=== PATIENT | female | born 1960 | race Caucasian/White ===

== ENCOUNTER 2016-11-29 09:10 | Emergency (ER) | payer BC ==
[2016-11-29 10:14] LABS: Hematocrit 37 % (35-47); Hemoglobin 12.6 g/dl (12.0-16.0); Mean Corpuscular HGB Conc 34 g/dl (31-36); Mean Corpuscular Hemoglobin 32 pg (27-31); Mean Corpuscular Volume 93 fL (80-97); Mean Platelet Volume 10 um3 (7.4-10.4); Red Blood Count 3.99 10^6/ul (4.0-5.4); Red Cell Distribution Width 13 % (10.5-15); White Blood Count 4.6 10^3/ul (3.5-10.8)
[2016-11-29 10:24] LABS: Albumin 3.4 g/dL (3.2-5.2); BUN/Creatinine Ratio 15.1 (8-20); Calcium 8.7 mg/dL (8.6-10.3); EGFR African American 80.5 (>60); EGFR Non-African American 62.6 (>60); Globulin 3.1 g/dL (2-4); Potassium 4.1 mmol/L (3.5-5.0); Total Bilirubin 0.3 mg/dL (0.2-1.0); Total Protein 6.5 g/dL (6.4-8.9)
[2016-11-29 12:36] VITALS: BP 126/92
--- NOTE | 2016-11-29 14:10 | ED ---
Charlie Marshall Matthew, scribed for Dyllan Mora MD on 11/29/16 at 1011 . GI/ HPI - HPI Summary HPI Summary: A 56 y/o female presents to the ED with rectal bleeding since an hour ago. The patient states that she had bright red blood with her BM this morning, which filled the toilet bowel. The blood with described as bright red and there was minimal stool with the BM. The patient does not have abdominal pain. She is not on blood thinners. She has never had this problem in the past. The patient has a Hx of hemorrhoids. PMHx: no diverticulitis or GERD - History of Current Complaint Chief Complaint: EDGIBleed Time Seen by Provider: 11/29/16 09:37 Stated Complaint: BLOOD IN STOOL Hx Obtained From: Patient Onset/Duration: Started Hours Ago, Atraumatic, Still Present Timing: Intermittent - during BM Severity: Moderate Pain Intensity: 0 Associated Signs and Symptoms: Positive: External Hemorrhoids, Bright Red Blood w/Stool, Blood w/Stool. Negative: Abdominal Pain - Allergy/Home Medications Allergies/Adverse Reactions: Allergies Allergy/AdvReac Type Severity Reaction Status Date / Time Levofloxacin [From Levaquin] Allergy Severe Unknown Verified 11/29/16 09:16 Reaction Details Nitrofurantoin Allergy Severe Unknown Verified 11/29/16 09:16 [From Macrobid] Reaction Details Codeine Allergy Vomiting Verified 11/29/16 09:16 Penicillins [PCN] Allergy Unknown Verified 11/29/16 09:16 Reaction Details Sulfa Antibiotics Allergy Hives/Diff. Verified 11/29/16 09:16 Breathing/I tching Sulfate Allergy Hives/Diff. Verified 11/29/16 09:16 Breathing/I tching Sulfites Allergy Hives/Diff. Verified 11/29/16 09:16 Breathing/I tching PMH/Surg Hx/FS Hx/Imm Hx Endocrine/Hematology History: Reports: Hx Anemia - A CHILD ONLY Denies: Hx Diabetes, Hx Thyroid Disease Cardiovascular History: Reports: Hx Hypertension - ON MEDS Denies: Hx Pacemaker/ICD, Other Cardiovascular Problems/Disorders Respiratory History: Denies: Hx Asthma, Hx Chronic Obstructive Pulmonary Disease (COPD), Other Respiratory Problems/Disorders GI History: Denies: Hx Ulcer, Other GI Disorders Musculoskeletal History: Reports: Other Musculoskeletal History - MENANGIOMA Sensory History: Reports: Hx Contacts or Glasses - GLASSES Denies: Hx Hearing Aid Opthamlomology History: Reports: Hx Contacts or Glasses - GLASSES Neurological History: Denies: Other Neuro Impairments/Disorders Psychiatric History: Denies: Hx Panic Disorder - Cancer History Cancer Type, 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 Hx Anesthesia Reactions: No Infectious Disease History: No Infectious Disease History: Denies: Hx Clostridium Difficile, Hx Hepatitis, Hx Human Immunodeficiency Virus (HIV), Hx of Known/Suspected MRSA, Hx Shingles, Hx Tuberculosis, Hx Known/ Suspected VRE, Hx Known/Suspected VRSA, History Other Infectious Disease, Traveled Outside the [place] in Last 30 Days - Family History Known Family History: Positive: Other - pos: breast CA: grandmother; father allergic to novacaine - Social History Alcohol Use: None Hx Substance Use: No Substance Use Type: Reports: None Hx Tobacco Use: No Smoking Status (MU): Never Smoked Tobacco Have You Smoked in the Last Year: No Review of Systems Constitutional: Negative Eyes: Negative ENT: Negative Cardiovascular: Negative Respiratory: Negative Gastrointestinal: Other - Rectal Bleeding w/ BM Genitourinary: Negative Musculoskeletal: Negative Skin: Negative Neurological: Negative Psychological: Normal All Other Systems Reviewed And Are Negative: Yes Physical Exam - Summary Physical Exam Summary: Rectal exam revealed minor hemorrhoids; however, there were no internal hemorrhoids or gross bleeding noted. Triage Information Reviewed: Yes Vital Signs On Initial Exam: Initial Vitals Temp Pulse Resp BP Pulse Ox 98.4 F 77 17 144/92 100 11/29/16 09:13 11/29/16 09:13 11/29/16 09:13 11/29/16 09:13 11/29/16 09:13 Vital Signs Reviewed: Yes Appearance: Positive: Well-Appearing, No Pain Distress Skin: Positive: Warm, Skin Color Reflects Adequate Perfusion, Dry Head/Face: Positive: Normal Head/Face Inspection Eyes: Positive: Normal ENT: Positive: Normal ENT inspection Neck: Positive: Supple, Nontender Respiratory/Lung Sounds: Positive: Clear to Auscultation, Breath Sounds Present Cardiovascular: Positive: RRR Abdomen Description: Positive: Nontender, Soft, Other: Bowel Sounds: Positive: Present Musculoskeletal: Positive: Normal, Strength/ROM Intact Neurological: Positive: Normal, Sensory/Motor Intact, Alert, Oriented to Person Place, Time Psychiatric: Positive: Normal, Affect/Mood Appropriate Diagnostics - Vital Signs Vital Signs Temp Pulse Resp BP Pulse Ox 11/29/16 09:13 98.4 F 77 17 144/92 100 - Laboratory Lab Results: Lab Results 11/29/16 11/29/16 11/29/16 Range/Units 09:40 09:40 09:40 WBC 4.6 (3.5-10.8) 10^3/ul RBC 3.99 L (4.0-5.4) 10^6/ul Hgb 12.6 (12.0-16.0) g/dl Hct 37 (35-47) % MCV 93 (80-97) fL MCH 32 H (27-31) pg MCHC 34 (31-36) g/dl RDW 13 (10.5-15) % Plt Count 155 (150-450) 10^3/ul MPV 10 (7.4-10.4) um3 Neut % (Auto) 47.1 (38-83) % Lymph % (Auto) 41.2 (25-47) % Pinal % (Auto) 6.3 (1-9) % Eos % (Auto) 4.6 (0-6) % Baso % (Auto) 0.8 (0-2) % Absolute Neuts (auto) 2.2 (1.5-7.7) 10^3/ul Absolute Lymphs (auto) 1.9 (1.0-4.8) 10^3/ul Absolute Monos (auto) 0.3 (0-0.8) 10^3/ul Absolute Eos (auto) 0.2 (0-0.6) 10^3/ul Absolute Basos (auto) 0 (0-0.2) 10^3/ul Absolute Nucleated RBC 0 10^3/ul Nucleated RBC % 0 INR (Anticoag Therapy) 0.90 (0.89-1.11) APTT 23.7 L (26.0-36.3) seconds Sodium (133-145) mmol/L Potassium (3.5-5.0) mmol/L Chloride (101-111) mmol/L Carbon Dioxide (22-32) mmol/L Anion Gap (2-11) mmol/L BUN (6-24) mg/dL Creatinine (0.51-0.95) mg/dL Est GFR ( Amer) (>60) Est GFR (Non-Af Amer) (>60) BUN/Creatinine Ratio (8-20) Glucose (70-100) mg/dL Calcium (8.6-10.3) mg/dL Total Bilirubin (0.2-1.0) mg/dL AST (13-39) U/L ALT (7-52) U/L Alkaline Phosphatase (34-104) U/L Total Protein (6.4-8.9) g/dL Albumin (3.2-5.2) g/dL Globulin (2-4) g/dL Albumin/Globulin Ratio (1-3) Blood Type A Positive Antibody Screen Negative 11/29/16 Range/Units 09:40 WBC (3.5-10.8) 10^3/ul RBC (4.0-5.4) 10^6/ul Hgb (12.0-16.0) g/dl Hct (35-47) % MCV (80-97) fL MCH (27-31) pg MCHC (31-36) g/dl RDW (10.5-15) % Plt Count (150-450) 10^3/ul MPV (7.4-10.4) um3 Neut % (Auto) (38-83) % Lymph % (Auto) (25-47) % Pinal % (Auto) (1-9) % Eos % (Auto) (0-6) % Baso % (Auto) (0-2) % Absolute Neuts (auto) (1.5-7.7) 10^3/ul Absolute Lymphs (auto) (1.0-4.8) 10^3/ul Absolute Monos (auto) (0-0.8) 10^3/ul Absolute Eos (auto) (0-0.6) 10^3/ul Absolute Basos (auto) (0-0.2) 10^3/ul Absolute Nucleated RBC 10^3/ul Nucleated RBC % INR (Anticoag Therapy) (0.89-1.11) APTT (26.0-36.3) seconds Sodium 134 (133-145) mmol/L Potassium 4.1 (3.5-5.0) mmol/L Chloride 104 (101-111) mmol/L Carbon Dioxide 27 (22-32) mmol/L Anion Gap 3 (2-11) mmol/L BUN 14 (6-24) mg/dL Creatinine 0.93 (0.51-0.95) mg/dL Est GFR ( Amer) 80.5 (>60) Est GFR (Non-Af Amer) 62.6 (>60) BUN/Creatinine Ratio 15.1 (8-20) Glucose 82 (70-100) mg/dL Calcium 8.7 (8.6-10.3) mg/dL Total Bilirubin 0.30 (0.2-1.0) mg/dL AST 18 (13-39) U/L ALT 16 (7-52) U/L Alkaline Phosphatase 49 (34-104) U/L Total Protein 6.5 (6.4-8.9) g/dL Albumin 3.4 (3.2-5.2) g/dL Globulin 3.1 (2-4) g/dL Albumin/Globulin Ratio 1.1 (1-3) Blood Type Antibody Screen Result Diagrams: 11/29/16 09:40 11/29/16 09:40 Lab Statement: Any lab studies that have been ordered have been reviewed, and results considered in the medical decision making process. GIGU Course/Dx - Course Course Of Treatment: Ms. Rangel presented having passed a large amount of painless red blood with a small amount of stool this AM. She had no other C/O. We watched her here and she didn't pass any more blood and labs were normal. I recommended close F/U. - Diagnoses Provider Diagnoses: Rectal bleeding Discharge - Discharge Plan Condition: Stable Disposition: HOME Patient Education Materials: Rectal Bleeding (ED) Referrals: Napoleon Gregory MD [Primary Care Provider] - 2 Days Edmund Bui MD [Medical Doctor] - Additional Instructions: Please follow-up with your primary care physician as well as Dr. Bui. The documentation as recorded by the Charlie skelton Matthew accurately reflects the service I personally performed and the decisions made by me, Dyllan Mora MD.
== END 2016-11-29 12:45 | disposition home or self-care (01) ==
LOC: ED 09:10
DX: K62.5 Hemorrhage of anus and rectum (principal); I10 Essential (primary) hypertension; Z88.5 Allergy status to narcotic agent; Z88.0 Allergy status to penicillin; Z88.2 Allergy status to sulfonamides; D32.9 Benign neoplasm of meninges, unspecified; K64.9 Unspecified hemorrhoids
CPT/HCPCS: 36415; 80053; 82272; 85025; 85610; 85730; 86850; 86900; 86901; 99283

== ENCOUNTER 2017-01-07 10:25 | Emergency (ER) | payer BC, OTHER ==
[2017-01-07 10:51] VITALS: BP 98/69
--- NOTE | 2017-01-07 12:16 | UC ---
Court Marshall Salem, scribed for [facility] on 01/07/17 at 1158 . HPI Febrile Illness - HPI Summary HPI Summary: HPI: Patient is a 56 y/o female who presents to the with diarrhea since 0430 yesterday. She reports sudden onset of fever, chills, nausea, and diarrhea repeating throughout the day. She also reports loss of appetite, occasional dry cough, and scratchy feeling in her chest. She denies SOB, but reports general malaise. Pt reports no other sx or related PMHx. However, she reports an episode of blood in the stool a while back. note: VSS, afebrile, post ox: 100%, 05/01 discomfort. Hx of HTN. Visit hx noncontributory to present complaint. Pt has multiple abx allergies. Nurses note: Fever, chills, diarrhea-started yesterday. - History of Current Complaint Chief Complaint: UCGeneralIllness Time Seen by Provider: 01/07/17 11:03 Hx Obtained From: Patient Onset/Duration: Started Days Ago Timing: Intermittent Initial Severity: Moderate Current Severity: Moderate Aggravating Factors: Nothing Alleviating Factors: Nothing Associated Signs and Symptoms: Chills, Cough - Occasional. Dry., Diarrhea, Nausea, Other: - General malaise. - Allergy/Home Medications Allergies/Adverse Reactions: Allergies Allergy/AdvReac Type Severity Reaction Status Date / Time Levofloxacin [From Levaquin] Allergy Severe Unknown Verified 01/07/17 10:46 Reaction Details Nitrofurantoin Allergy Severe Unknown Verified 01/07/17 10:46 [From Macrobid] Reaction Details Codeine Allergy Vomiting Verified 01/07/17 10:46 Penicillins [PCN] Allergy Unknown Verified 01/07/17 10:46 Reaction Details Sulfa Antibiotics Allergy Hives/Diff. Verified 01/07/17 10:46 Breathing/I tching Sulfate Allergy Hives/Diff. Verified 01/07/17 10:46 Breathing/I tching Sulfites Allergy Hives/Diff. Verified 01/07/17 10:46 Breathing/I tching PMH/Surg Hx/FS Hx/Imm Hx Endocrine/Hematology History: Reports: Hx Anemia - A CHILD ONLY Denies: Hx Diabetes, Hx Thyroid Disease Cardiovascular History: Reports: Hx Hypertension - ON MEDS Denies: Hx Pacemaker/ICD, Other Cardiovascular Problems/Disorders Respiratory History: Denies: Hx Asthma, Hx Chronic Obstructive Pulmonary Disease (COPD), Other Respiratory Problems/Disorders GI History: Denies: Hx Ulcer, Other GI Disorders Musculoskeletal History: Reports: Other Musculoskeletal History - MENANGIOMA Sensory History: Reports: Hx Contacts or Glasses - GLASSES Opthamlomology History: Reports: Hx Contacts or Glasses - GLASSES Neurological History: Denies: Other Neuro Impairments/Disorders Psychiatric History: Denies: Hx Panic Disorder - Cancer History Cancer Type, 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 Hx Anesthesia Reactions: No Infectious Disease History: No Infectious Disease History: Denies: Hx Clostridium Difficile, Hx Hepatitis, Hx Human Immunodeficiency Virus (HIV), Hx of Known/Suspected MRSA, Hx Shingles, Hx Tuberculosis, Hx Known/ Suspected VRE, Hx Known/Suspected VRSA, History Other Infectious Disease, Traveled Outside the [place] in Last 30 Days - Family History Known Family History: Positive: Other - pos: breast CA: grandmother; father allergic to novacaine - Social History Alcohol Use: None Hx Substance Use: No Substance Use Type: Reports: None Hx Tobacco Use: No Smoking Status (MU): Never Smoked Tobacco Have You Smoked in the Last Year: No Review of Systems Constitutional: Fever, Chills Respiratory: Cough - Occasional. Dry., Other - No SOB. Gastrointestinal: Diarrhea, Other - Nausea. Loss of appetite. All Other Systems Reviewed And Are Negative: Yes Physical Exam Triage Information Reviewed: Yes Appearance: Well-Appearing, No Pain Distress, Well-Nourished Vital Signs: Initial Vital Signs Temp 97.9 F 01/07/17 10:49 Pulse 80 01/07/17 10:49 Resp 16 01/07/17 10:49 BP 98/69 01/07/17 10:49 Pulse Ox 100 01/07/17 10:49 Vital Signs Reviewed: Yes Eyes: Positive: Conjunctiva Clear ENT: Positive: Hearing grossly normal, Pharynx normal, TMs normal. Negative: Muffled/hoarse voice Neck: Positive: Supple, Nontender, No Lymphadenopathy, Other: - No sinus tenderness. No adenopathy. Respiratory: Positive: Chest non-tender, Lungs clear, Normal breath sounds, No respiratory distress Cardiovascular: Positive: RRR, No Murmur Abdomen Description: Positive: Nontender, No Organomegaly, Soft Bowel Sounds: Positive: Other: - HYPERACTIVE. Musculoskeletal: Positive: Strength Intact, Other: - OLGUIN. Neurological: Positive: Alert Psychological: Positive: Age Appropriate Behavior Diagnostics - Laboratory Diagnostic Studies Completed/Ordered: Influenza A (rapid): negative. Influenza B (rapid): negative. Course/Dx - Diagnoses Clinic Provider Diagnoses: Viral syndrome. Discharge - Discharge Plan Condition: Stable Disposition: HOME Patient Education Materials: Gastroenteritis (ED), Viral Syndrome (ED) Referrals: Napoleon Gregory MD [Primary Care Provider] - Additional Instructions: WE DISCUSSED: 1. IT'S MOST LIKELY THAT YOU HAVE A VIRUS THAT IS GIVING YOU DIARRHEA, CHEST DISCOMFORT, COUGH, NAUSEA AND A TEMPERATURE. 2. THIS SHOULD GO AWAY OVER THE NEXT 36 HOURS OR CERTAINLY IMPROVE. 3. RE CHECK FOR ANY NEW SYMPTOMS OR IF FEVER CONTINUES FOR MORE THAN ANOTHER 36 HOURS. 4. YOUR FLU TEST WAS NEGATIVE. 5. BELOW ARE SOME OTHER INSTRUCTIONS THAT MAY MAKE YOU MORE COMFORTABLE. ESPECIALLY WARM FLUIDS AND STEAM WELL SIMPLIFY DIET. 6. ALSO: USEFUL WAYS TO FEEL BETTER WITHOUT MEDICATIONS: STAND UNDER SHOWER STREAM TO LOOSEN SECRETIONS. USE A VAPORIZOR. STAY AWAY FROM ANY SMOKE OR IRRITANTS. USE SALINE NASAL SPRAY TO KEEP FLOW OF MUCOUS FROM NOSTRILS AND SINUSES. CONSIDER USING NETI POT TO HELP WITH ALLERGIES AND CONGESTION IN THE NOSE. USE THIS THREE TIMES A WEEK. YOU CAN GET THIS AT [facility] IN [place] OR VARIOUS DRUGSTORES. DRINK LOTS OF WARM FLUIDS USEFUL HOME REMEDIES: WARM WATER GARGLES, WITH TSP OF SALT PER 8 OUNCES OF WATER, GARGLE FOR A FEW SECONDS AND SPIT OUT; GARGLE AND SPIT OUT; EVERY THREE HOURS. AND/OR: WARM WATER OR TEA, HONEY AND LEMON; 2-3 CUPS A DAY. FOR SORE THROAT: KEEP THROAT MOIST WITH LOZENGES; TEA AND HONEY. USE WARM WATER GARGLES 3-4 TIMES A DAY. FOLLOW UP: RE-CHECK IN 1O DAYS, NEEDED, IF YOU ARE NOT IMPROVING. RETURN HERE OR SEE YOUR PHYSICIAN. RE-CHECK SOONER IF INCREASED PAIN OR TEMPERATURE. The documentation as recorded by the Court skelton Salem accurately reflects the service I personally performed and the decisions made by , Omar Stephenson MD.
== END 2017-01-07 12:27 | disposition home or self-care (01) ==
LOC: UCEAST 10:25
DX: B34.9 Viral infection, unspecified (principal); I10 Essential (primary) hypertension; Z88.1 Allergy status to other antibiotic agents; Z88.5 Allergy status to narcotic agent; Z88.0 Allergy status to penicillin; Z88.2 Allergy status to sulfonamides
CPT/HCPCS: 87502; 99211; G0463

== ENCOUNTER 2017-02-26 12:52 | Emergency (ER) | payer OTHER, BC ==
[2017-02-26 13:33] VITALS: BP 142/93
--- NOTE | 2017-02-26 13:43 | UC ---
Headache HPI - HPI Summary HPI Summary: 56 yo female followed at [facility] s/p injury late last year WHITT and phonophobia Was seen at clinic yesterday [place] [address] triggered worsening WHITT Requests note for work On Monday has an appt in [facility] for Independent medical exam On Monday has appt in [place] - History Of Current Complaint Chief Complaint: UCHeadache Stated Complaint: POST-CONCUSSION HEADACHE Time Seen by Provider: 02/26/17 13:35 Hx Obtained From: Patient Onset/Duration: Gradual Onset, Lasting Hours Onset Of Symptoms: Sudden, Gradual Initially Headache Was: Moderate Currently Pain Is: Current Pain Scale(0-10)= - 6 Pain Intensity: 6 Pain Scale Used: 0-10 Numeric Timing: Constant Character: Dull, Throbbing Location of Headache: Diffuse Aggravating Factor: Nothing Allevating Factors: Nothing Associated Signs And Symptoms: Positive: Negative - Allergies/Home Medications Allergies/Adverse Reactions: Allergies Allergy/AdvReac Type Severity Reaction Status Date / Time Levofloxacin [From Levaquin] Allergy Severe Unknown Verified 01/07/17 10:46 Reaction Details Nitrofurantoin Allergy Severe Unknown Verified 01/07/17 10:46 [From Macrobid] Reaction Details Codeine Allergy Vomiting Verified 01/07/17 10:46 Penicillins [PCN] Allergy Unknown Verified 01/07/17 10:46 Reaction Details Sulfa Antibiotics Allergy Hives/Diff. Verified 01/07/17 10:46 Breathing/I tching Sulfate Allergy Hives/Diff. Verified 01/07/17 10:46 Breathing/I tching Sulfites Allergy Hives/Diff. Verified 01/07/17 10:46 Breathing/I tching Home Medications: Home Medications Cyclobenzaprine TAB* [Flexeril 10 MG TAB*] 02/26/17 [History] PMH/Surg Hx/FS Hx/Imm Hx Previously Healthy: Yes Endocrine History Of: Denies: Diabetes, Thyroid Disease Cardiovascular History Of: Reports: Hypertension - ON MEDS Denies: Cardiac Disorders, Pacemaker/ICD Respiratory History Of: Reports: Bronchitis - IN THE PAST Denies: COPD, Asthma GI/ History Of: Denies: Ulcer Cancer History Of: Denies: Breast Cancer - Surgical History Surgical History: Yes Surgery Procedure, Year, and Place: appy, cholecystetomy, hernia repair, c- sections, lap for adhesions, hysterectomy, tubal ligation,LEFT OOPHERECTOMY AND RIGHT, left ankle recont. - Family History Known Family History: Positive: Hypertension, Other - pos: breast CA: grandmother; father allergic to novacaine - Social History Alcohol Use: None Substance Use Type: None Smoking Status (MU): Never Smoked Tobacco Have You Smoked in the Last Year: No - Immunization History Most Recent Influenza Vaccination: UTD Hx Tetanus, Diphtheria Vaccination: Yes Vaccination Up to Date: Yes Review of Systems Constitutional: Negative Skin: Negative Eyes: Negative ENT: Negative Respiratory: Negative Cardiovascular: Negative Gastrointestinal: Negative Genitourinary: Negative Motor: Negative Neurovascular: Negative Musculoskeletal: Negative Neurological: Headache Psychological: Negative All Other Systems Reviewed And Are Negative: Yes Physical Exam Triage Information Reviewed: Yes Appearance: Well-Appearing, No Pain Distress, Well-Nourished Vital Signs: Initial Vital Signs Temp 97.3 F 02/26/17 13:28 Pulse 70 02/26/17 13:28 Resp 18 02/26/17 13:28 BP 142/93 02/26/17 13:28 Pulse Ox 99 02/26/17 13:28 Eye Exam: Normal Eyes: Positive: Conjunctiva Clear, Other: - eomi/perrl ENT: Positive: Hearing grossly normal. Negative: Nasal congestion, Trismus, Muffled/hoarse voice Neck: Positive: Supple, Nontender, No Lymphadenopathy Respiratory: Positive: Lungs clear, Normal breath sounds, No respiratory distress, No accessory muscle use Cardiovascular: Positive: RRR, No Murmur, Pulses Normal Abdomen Description: Positive: No Organomegaly, Soft, Bruit Bowel Sounds: Positive: Present Musculoskeletal: Positive: Strength Intact, ROM Intact Neurological Exam: Normal Psychological Exam: Normal Skin Exam: Normal Headache Course/Dx - Differential Dx/Diagnosis Provider Diagnoses: post concussive headache Discharge - Discharge Plan Condition: Stable Disposition: HOME Patient Education Materials: Post Concussion Syndrome (ED) Forms: *Work Release Referrals: Napoleon Gregory MD [Primary Care Provider] -
== END 2017-02-26 13:50 | disposition home or self-care (01) ==
LOC: UCEAST 12:52
DX: F07.81 Postconcussional syndrome (principal); I10 Essential (primary) hypertension; Z88.5 Allergy status to narcotic agent; Z88.3 Allergy status to other anti-infective agents; Z88.0 Allergy status to penicillin; Z88.2 Allergy status to sulfonamides; Z87.09 Personal history of other diseases of the respiratory system
CPT/HCPCS: 99211; G0463

== ENCOUNTER 2017-06-15 13:07 | Emergency (ER) | payer BC, OTHER ==
[2017-06-15 13:49] VITALS: BP 137/94
--- NOTE | 2017-06-15 14:36 | UC ---
Respiratory Complaint HPI - HPI Summary HPI Summary: 56 YEAR OLD FEMALE PRESENTS WITH COMPLAINS OF COUGH, CHEST CONGESTION AND WHEEZING. - History of Current Complaint Chief Complaint: UCRespiratory Stated Complaint: CHEST CONGESTION Time Seen by Provider: 06/15/17 14:33 Hx Obtained From: Patient Onset/Duration: Sudden Onset Severity Initially: Moderate Severity Currently: Moderate Pain Scale Used: 0-10 Numeric - 5 - Allergies/Home Medications Allergies/Adverse Reactions: Allergies Allergy/AdvReac Type Severity Reaction Status Date / Time Levofloxacin [From Levaquin] Allergy Severe Unknown Verified 06/15/17 13:45 Reaction Details Nitrofurantoin Allergy Severe Unknown Verified 06/15/17 13:45 [From Macrobid] Reaction Details Codeine Allergy Vomiting Verified 06/15/17 13:45 Penicillins [PCN] Allergy Unknown Verified 06/15/17 13:45 Reaction Details Sulfa Antibiotics Allergy Hives/Diff. Verified 06/15/17 13:45 Breathing/I tching Sulfate Allergy Hives/Diff. Verified 06/15/17 13:45 Breathing/I tching Sulfites Allergy Hives/Diff. Verified 06/15/17 13:45 Breathing/I tching Home Medications: Home Medications diPHENhydraMINE PO* [Benadryl PO 25 MG TAB*] 06/15/17 [History] PMH/Surg Hx/FS Hx/Imm Hx Previously Healthy: Yes - Surgical History Surgical History: Yes Surgery Procedure, Year, and Place: appy, cholecystetomy, hernia repair, c- sections, lap for adhesions, hysterectomy, tubal ligation,LEFT OOPHERECTOMY AND RIGHT, left ankle recont. - Family History Known Family History: Positive: Unknown, Hypertension, Other - pos: breast CA: grandmother; father allergic to novacaine - Social History Alcohol Use: None Substance Use Type: None Smoking Status (MU): Never Smoked Tobacco Have You Smoked in the Last Year: No - Immunization History Most Recent Influenza Vaccination: UTD Hx Tetanus, Diphtheria Vaccination: Yes Vaccination Up to Date: Yes Review of Systems Constitutional: Negative Skin: Negative Eyes: Negative ENT: Sore Throat Respiratory: Shortness Of Breath, Cough Cardiovascular: Negative Gastrointestinal: Negative Genitourinary: Negative Motor: Negative Neurovascular: Negative Musculoskeletal: Negative Neurological: Negative Psychological: Negative All Other Systems Reviewed And Are Negative: Yes Physical Exam Triage Information Reviewed: Yes Vital Signs: Initial Vital Signs Temp 37.0 C 06/15/17 13:46 Pulse 83 06/15/17 13:46 Resp 16 06/15/17 13:46 BP 137/94 06/15/17 13:46 Pulse Ox 99 06/15/17 13:46 Vital Signs Reviewed: Yes Eye Exam: Normal ENT: Positive: Pharyngeal erythema, Nasal drainage Dental Exam: Normal Neck exam: Normal Neck: Positive: 1 Respiratory: Positive: Wheezing Cardiovascular Exam: Normal Abdominal Exam: Normal Musculoskeletal Exam: Normal Neurological Exam: Normal Psychological Exam: Normal Skin Exam: Normal UC Diagnostic Evaluation - Laboratory O2 Sat by Pulse Oximetry: 99 Respiratory Course/Dx - Differential Dx/Diagnosis Provider Diagnoses: BRONCHITIS Discharge - Discharge Plan Condition: Stable Disposition: HOME Prescriptions: Albuterol/Ipratropium RESP(NF) [Combivent Respimat(NF)] 1 aer IN Q6H PRN #1 aer PRN Reason: Wheezing Azithromyxin CLARISSA (NF) [Z-Clarissa (Zithromax) 250 mg tabs #6] 2 tab PO .TODAY, THEN 1 DAILY #6 tab Promethazine-Dm [Promethazine/Dextromethor 6.25-15 mg/5Ml] 1 teasp PO Q6H PRN # 120 syp MDD 20 ml PRN Reason: Cough Patient Education Materials: Acute Bronchitis (ED) Referrals: Napoleon Gregory MD [Primary Care Provider] -
== END 2017-06-15 15:21 | disposition home or self-care (01) ==
LOC: UCEAST 13:07
DX: J20.9 Acute bronchitis, unspecified (principal); Z88.6 Allergy status to analgesic agent; Z88.1 Allergy status to other antibiotic agents; Z88.5 Allergy status to narcotic agent; Z88.0 Allergy status to penicillin; Z88.2 Allergy status to sulfonamides
CPT/HCPCS: 99212; G0463

== ENCOUNTER 2017-08-18 09:31 | Emergency (ER) | payer OTHER ==
[2017-08-18 09:42] VITALS: BP 123/74
--- NOTE | 2017-08-18 10:41 | UC ---
Ear Complaint HPI - HPI Summary HPI Summary: 2 DAYS OF RIGHT EAR PAIN AND MUFFLED HEARING. HAD SOME DRAINAGE YESTERDAY AND SUBJECTIVE FEVER. DENIES URI SX. PAIN IS RADIATING INTO HER JAW. PT REPORTS SHE HAD SIMILAR SX IN 1998 AND IT DEVELOPED INTO A CELLULITIS OF THE EAR AND NECK. - History of Current Complaint Chief Complaint: UCEar Stated Complaint: EAR ACHE Time Seen by Provider: 08/18/17 10:28 Hx Obtained From: Patient Onset/Duration: Gradual Onset, Lasting Days, Still Present Severity Initially: Moderate Severity Currently: Moderate Pain Intensity: 6 Pain Scale Used: 0-10 Numeric Aggravating Factors: Nothing Alleviating Factors: Nothing Associated Signs/Symptoms: Positive: Discharge, Hearing Loss. Negative: Foreign Body Sensation, Trauma to Ear, Swelling @, URI Symptoms - Allergies/Home Medications Allergies/Adverse Reactions: Allergies Allergy/AdvReac Type Severity Reaction Status Date / Time Levofloxacin [From Levaquin] Allergy Severe Unknown Verified 08/18/17 09:36 Reaction Details Nitrofurantoin Allergy Severe Unknown Verified 08/18/17 09:36 [From Macrobid] Reaction Details Codeine Allergy Vomiting Verified 08/18/17 09:36 Penicillins [PCN] Allergy Unknown Verified 08/18/17 09:36 Reaction Details Sulfa Antibiotics Allergy Hives/Diff. Verified 08/18/17 09:36 Breathing/I tching Sulfate Allergy Hives/Diff. Verified 08/18/17 09:36 Breathing/I tching Sulfites Allergy Hives/Diff. Verified 08/18/17 09:36 Breathing/I tching PMH/Surg Hx/FS Hx/Imm Hx Cardiovascular History: Hypertension - Surgical History Surgical History: Yes Surgery Procedure, Year, and Place: appy, cholecystetomy, hernia repair, c- sections, lap for adhesions, hysterectomy, tubal ligation,left oopherectomy and right, left ankle recont. - Family History Known Family History: Positive: Hypertension, Other - pos: breast CA: grandmother; father allergic to novacaine - Social History Alcohol Use: None Substance Use Type: None Smoking Status (MU): Never Smoked Tobacco Have You Smoked in the Last Year: No - Immunization History Most Recent Influenza Vaccination: 2014 Hx Tetanus, Diphtheria Vaccination: Yes Vaccination Up to Date: Yes Review of Systems Constitutional: Fever ENT: Ear Ache Respiratory: Negative Cardiovascular: Negative Gastrointestinal: Negative All Other Systems Reviewed And Are Negative: Yes Physical Exam Triage Information Reviewed: Yes Appearance: Well-Appearing, No Pain Distress, Well-Nourished Vital Signs: Initial Vital Signs Temp 98.2 F 08/18/17 09:37 Pulse 86 08/18/17 09:37 Resp 16 08/18/17 09:37 BP 123/74 08/18/17 09:37 Pulse Ox 99 08/18/17 09:37 Vital Signs Reviewed: Yes Eyes: Positive: Conjunctiva Clear ENT: Positive: Hearing grossly normal, Pharynx normal, TMs normal, Other: - RIGHT EAC EDEMATOUS. PAIN WITH TRACTION ON PINNA AND PRESSURE ON TRAGUS. Neck: Positive: Supple, No Lymphadenopathy Respiratory: Positive: No respiratory distress, No accessory muscle use Cardiovascular: Positive: Pulses Normal Abdomen Description: Positive: Soft Musculoskeletal: Positive: No Edema Neurological: Positive: Alert Psychological: Positive: Age Appropriate Behavior Skin: Negative: rashes Ear Complaint Course/Dx - Course Course Of Treatment: PT REPORTS ALLERGIES TO LEVOFLOXACIN AND PENICILLINS BUT STATES SHE HAS TAKEN BOTH CIPRODEX OTIC DROPS AND CEPHALEXIN IN THE PAST WITHOUT PROBLEMS AND IS COMFORTABLE WITH THESE RX TODAY. NO SIGN OF CELLULITIS AT PRESENT BUT GIVEN PT CONCERN AND HER HISTORY WILL COVER WITH SYSTEMIC ABX WELL AND OTIC DROPS. - Differential Dx/Diagnosis Provider Diagnoses: RIGHT OTITIS EXTERNA Discharge - Discharge Plan Condition: Stable Disposition: HOME Prescriptions: Cephalexin CAP* [Keflex 500 CAP*] 1,000 mg PO BID #28 cap Ciproflox/Dexameth OTIC.SUSP* [Ciprodex Otic*] 4 drop RIGHT EAR BID #1 bottle Patient Education Materials: Otitis Externa (ED) Referrals: Napoleon Gregory MD [Primary Care Provider] - If Needed Additional Instructions: IF YOUR SYMPTOMS ARE NOT IMPROVING OR DO NOT RESOLVE ENTIRELY FOLLOW-UP WITH ENT BELOW. GO TO THE ER WITHOUT FAIL IF YOUR SYMPTOMS WORSEN - BLOODY DRAINAGE, WORSENING PAIN, FEVER [facility] [phone]
== END 2017-08-18 10:47 | disposition home or self-care (01) ==
LOC: UCEAST 09:31
DX: H60.91 Unspecified otitis externa, right ear (principal); I10 Essential (primary) hypertension; Z88.1 Allergy status to other antibiotic agents; Z88.5 Allergy status to narcotic agent; Z88.0 Allergy status to penicillin; Z88.2 Allergy status to sulfonamides
CPT/HCPCS: 99212; G0463

== ENCOUNTER 2017-08-19 19:49 | Emergency (ER) | payer OTHER ==
[2017-08-19 19:57] VITALS: BP 129/99
[2017-08-19] MEDS ORDERED: ceFUROXime 500 mg TAB(NF) 500 MG TAB PO ONE (20:45)
[2017-08-19] MEDS ORDERED: traMADol TAB* 50 MG PO ONE (20:46)
[2017-08-19] MEDS ORDERED: ceFUROXime TAB(*) 250 MG PO ONE (21:00)
--- NOTE | 2017-08-19 21:02 | ED ---
Doreen Marshall Emily, scribed for Víctor Sethi on 08/19/17 at 2029 . Throat Pain/Nasal Congestion - HPI Summary HPI Summary: This patient is a 57 year old F presenting to [facility] with a chief complaint of R ear pain that began 4 days ago. The CC is described as throbbing. The patient rates the pain 6/10 in severity. Symptoms aggravated by nothing. Symptoms alleviated by nothing. Patient reports fever, chills, and discharge from R ear. Patient denies headache. Pt was seen at urgent care yesterday and diagnosed with a R ear infection and has been prescribed Keflex. Pt reports having similar symptoms previously that resulted in cellulitis. - History of Current Complaint Chief Complaint: EDEarPain Time Seen by Provider: 08/19/17 20:13 Hx Obtained From: Patient Onset/Duration: Sudden Onset, Lasting Days, Still Present Severity: Moderate - Allergies/Home Medications Allergies/Adverse Reactions: Allergies Allergy/AdvReac Type Severity Reaction Status Date / Time Levofloxacin [From Levaquin] Allergy Severe Unknown Verified 08/18/17 09:36 Reaction Details Nitrofurantoin Allergy Severe Unknown Verified 08/18/17 09:36 [From Macrobid] Reaction Details Codeine Allergy Vomiting Verified 08/18/17 09:36 Penicillins [PCN] Allergy Unknown Verified 08/18/17 09:36 Reaction Details Sulfa Antibiotics Allergy Hives/Diff. Verified 08/18/17 09:36 Breathing/I tching Sulfate Allergy Hives/Diff. Verified 08/18/17 09:36 Breathing/I tching Sulfites Allergy Hives/Diff. Verified 08/18/17 09:36 Breathing/I tching PMH/Surg Hx/FS Hx/Imm Hx Previously Healthy: No Endocrine/Hematology History: Reports: Hx Anemia - A CHILD ONLY Denies: Hx Diabetes, Hx Thyroid Disease Cardiovascular History: Reports: Hx Hypertension - ON MEDS Denies: Hx Pacemaker/ICD, Other Cardiovascular Problems/Disorders Respiratory History: Denies: Hx Asthma, Hx Chronic Obstructive Pulmonary Disease (COPD), Other Respiratory Problems/Disorders GI History: Denies: Hx Ulcer, Other GI Disorders Musculoskeletal History: Reports: Other Musculoskeletal History - [place] Sensory History: Reports: Hx Contacts or Glasses - GLASSES Opthamlomology History: Reports: Hx Contacts or Glasses - GLASSES Neurological History: Denies: Other Neuro Impairments/Disorders Psychiatric History: Denies: Hx Panic Disorder - Cancer History Cancer Type, 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 Hx Anesthesia Reactions: No Infectious Disease History: No Infectious Disease History: Denies: Hx Clostridium Difficile, Hx Hepatitis, Hx Human Immunodeficiency Virus (HIV), Hx of Known/Suspected MRSA, Hx Shingles, Hx Tuberculosis, Hx Known/ Suspected VRE, Hx Known/Suspected VRSA, History Other Infectious Disease, Traveled Outside the [place] in Last 30 Days - Family History Known Family History: Positive: Hypertension, Other - pos: breast CA: grandmother; father allergic to novacaine - Social History Occupation: Retired Lives: With Family Alcohol Use: None Hx Substance Use: No Substance Use Type: Reports: None Hx Tobacco Use: No Smoking Status (MU): Never Smoked Tobacco Have You Smoked in the Last Year: No Review of Systems Positive: Fever, Chills Positive: Other - Positive R ear pain and discharge from R ear Negative: Headache All Other Systems Reviewed And Are Negative: Yes Physical Exam Triage Information Reviewed: Yes Vital Signs On Initial Exam: Initial Vitals Temp Pulse Resp BP Pulse Ox 97.6 F 85 16 129/99 98 08/19/17 19:53 08/19/17 19:53 08/19/17 19:53 08/19/17 19:53 08/19/17 19:53 Vital Signs Reviewed: Yes Appearance: Positive: Well-Appearing, No Pain Distress Skin: Positive: Warm, Skin Color Reflects Adequate Perfusion, Dry Head/Face: Positive: Normal Head/Face Inspection Eyes: Positive: EOMI, AZEB ENT: Positive: Other - TM is dull. External auditory canal is swollen. No discharge at present. External appendage is normal Neck: Positive: Supple, Nontender Respiratory/Lung Sounds: Positive: Clear to Auscultation, Breath Sounds Present Cardiovascular: Positive: RRR, Pulses are Symmetrical in both Upper and Lower Extremities Abdomen Description: Positive: Nontender, Soft Bowel Sounds: Positive: Present Musculoskeletal: Positive: Normal, Strength/ROM Intact Neurological: Positive: Normal, Sensory/Motor Intact, Alert, Oriented to Person Place, Time Diagnostics - Vital Signs Vital Signs Temp Pulse Resp BP Pulse Ox 08/19/17 19:53 97.6 F 85 16 129/99 98 - Laboratory Lab Results: Lab Results 08/19/17 Range/Units 20:33 POC Glucose (mg/dL) 131 H (70-100) mg/dL Lab Statement: Any lab studies that have been ordered have been reviewed, and results considered in the medical decision making process. EENT Course/Dx - Course Assessment/Plan: This patient is a 57 year old F presenting to [facility] with a chief complaint of R ear pain that began 4 days ago. The CC is described as throbbing. The patient rates the pain 6/10 in severity. Symptoms aggravated by nothing. Symptoms alleviated by nothing. Patient reports fever, chills, and discharge from R ear. Patient denies headache. Pt was seen at urgent care yesterday and diagnosed with a R ear infection and has been prescribed Keflex. Pt reports having similar symptoms previously that resulted in cellulitis. PMHx includes. Negative hx of diabetes. Physical Exam Findings. TM is dull. External auditory canal is swollen. No discharge at present. External appendage is normal. Medical Decision Making. Patient will be discharged with prescription for Suprax and Ultram with follow up from Dr. Christie (ENT). The patient is agreeable with this plan.PT ADVISED TO COME BACK TO ER IF SYMTOMPS GETS WORSE IN THE NEXT 48 HRS WITH FEVER AND HEADACHE. - Differential Diagnoses Differential Diagnoses: Foreign Body, Otitis Externa, Otitis Media, Sinusitis - Diagnoses Provider Diagnoses: Otitis media Discharge - Discharge Plan Condition: Stable Disposition: HOME Prescriptions: Cefixime [Suprax] 400 mg PO BID #14 cap MDD 2 traMADol TAB* [Ultram*] 50 mg PO TID #15 tab MDD 3 Patient Education Materials: Cefixime (By mouth), Tramadol (By mouth), Otitis Media (ED) Referrals: Arslan Christie MD [Medical Doctor] - 08/21/17 Additional Instructions: CHANGE YOUR ANTIBITIOTIC TO THE SUPRAX YOU WERE PRESCRIBED TODAY. RETURN TO THE EMERGENCY DEPARTMENT IF YOU EXPERIENCE ANY FEVER OR HEADACHE. RETURN TO THE EMERGENCY DEPARTMENT FOR CHANGING OR WORSENING SYMPTOMS. The documentation as recorded by the Doreen skelton Emily accurately reflects the service I personally performed and the decisions made by , Víctor Sethi.
== END 2017-08-19 21:00 | disposition home or self-care (01) ==
LOC: ED 19:49
DX: H66.91 Otitis media, unspecified, right ear (principal); I10 Essential (primary) hypertension; Z88.0 Allergy status to penicillin; Z88.2 Allergy status to sulfonamides
CPT/HCPCS: 99282; A9270-GY

== ENCOUNTER 2018-05-06 09:45 | Emergency (ER) | payer BC ==
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
--- OUTSIDE RECORDS SUMMARY | 2018-05-06 09:52 | XMS REPORT ---
:1960 External Reference #:[id number] Author Organization [facility] Address [address] [place] [address] [place] [address] Phone [phone] Care Team Providers Name Role Phone Napoleon Gregory MD Primary Care Physician Unavailable Payers Type Date Identification Numbers Payment Provider Subscriber Commercial Policy Number: [id number] BS Janis Mehta PayID: [id number] [address] [address] [place] [address] Workers Effective: Policy Number: Tripp Mehta Compensation 2016 [id number] Insurance Onset: 2016 PayID: [id number] [place] [address] Problems Date Description Provider Status Onset: 05/25/2015 [...] Date Description Comments 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 Denies alcohol use Smoking Patient [...] po 13 Jm Mei 2018 - hrs Morris 02/20/ before ct , 2017 contrast, then 1 po [address] contrast, then 1 po [address] contrast Propranolol HCL 11/22/ Hx Caps ER 80mg 30cap 1 by R51 Rody CAMACHO 2018 - 24HR s mouth at [facility], 11/28/ bedtime M.DAyanna 2017 Truvada 06/06/ Hx [...] needed Vital Signs Date Vital Result Comment 04/24/2018 Height 65 inches 5'5" Weight 206.00 lb Heart Rate 74 /min BP Systolic 122 mmHg BP Diastolic 70 mmHg Respiratory Rate 12 /min Body Temperature 98.3 F Pain Level 6 BMI (Body Mass Index) 34.3 kg/m2 04/10/2018 Height 65 inches 5'5" Weight 206.00 [...] 5 Kidney failure <15 (or dialysis) 2 [id number] 3 SEE RESULT BELOW Name: ROSA MEHTA : [address]: Leila Darnell MD Acct: [id number] Unit: [id number] AGE: 57 Location: [facility] Re08/31/17 SEX: F Status: REG REF SPEC: [id number] MACY: 08/31/17-[address] [facility] [address]: Joey Vargas MD REQ: [id number] RECD: 08/31/17160 STATUS: LYNETTE SOUTH DR: Leila Darnell MD _ ORDERED: LEVEL 4 COMMENTS: [id number] FINAL DIAGNOSIS Breast, right, 12:00, 2 cm [...] END OF REPORT * ML=Testing performed at Main Lab DEPARTMENT OF PATHOLOGY, [address] [place] [address] Sebastian Villagran M.D. Director [facility] # [id number] 4 It is recognized that currently available [...] LEFT ANKLE, SEQU 7 SEE RESULTS BELOW [id number] SEMITEN TRANSFUSED 09/28/15 0814 Procedures Date CPT Code Description Status 11/30/2017 Mammogram Completed 07/27/2017 Mammogram Completed 10/17/2016 Mammogram Completed 10/09/2015 68369 Short Leg Cast Completed 09/28/2015 93754 Repair Collateral Ligament Ankle, Secondary Completed 09/28/2015 55453 Repair Collateral Ligament Ankle, Secondary Completed 2015 Bone Mineral Density Test Completed Encounters Type Date Location Provider CPT E/M Dx Office Visit 04/10/2018 [facility] [place] [address] R10.32 10:00a [facility] Office Visit 02/21/2018 [place] Terence Benz M.D. 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 37375 R51 9:45a [facility] Office Visit 11/22/2017 [facility] Rody Benz M.D. 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 N64.4 Office Visit 10/28/2016 3:15p [facility] Vishnu Banks, 61333 M25.372 C.MNeo Echavarria Office Visit 06/06/2016 4:20p [facility] Estevan Umaña 90765 Z20.6 Infectious Diseases Jericho Lopez Z79.899 Office Visit 02/16/2016 2:10p [facility] Vishnu Banks 19303 S93.402D Of C.Koby Echavarria Office Visit 09/04/2015 10:10a [facility] Vishnu Banks 16530 S93.402S Of C.MNeo Echavarria M25.572 Office Visit 08/07/2015 1:00p [facility] Fabian Blanco, 75838 S93.402S [facility] AT Azar Echavarria M76.72 M25.572 Office Visit 06/23/2015 8:45a [facility] Fabian Ayerss, 19359 845.00 Utility Worker AT Azar Echavarria 719.47 Office Visit 05/25/2015 8:30a [facility] Fabian Blanco, 55276 845.00 C.M.Frederick Echavarria 719.45 719.47 Office Visit 01/14/2015 1:15p [facility] Jadyn Trish, 91762 845.00 C.M.AAyanna RPA-C 719.45 Plan of Care Future Appointment(s):08/24/2018 10:15 am - Rody Benz M.D. at [facility]04/24/2018 - Vishnu Banks M.D.M79.672 Pain in left footNew Xrays:MRI Lower Extremity Left W/OFollow up:after testing is completed
--- OUTSIDE RECORDS SUMMARY | 2018-05-06 09:53 | XMS REPORT ---
:1960 External Reference #:[id number] Author Organization [facility] Address [address] [place] [address] [place] [address] Phone [phone] Care Team Providers Name Role Phone Napoleon Gregory MD Primary Care Physician Unavailable Payers Type Date Identification Numbers Payment Provider Subscriber Commercial Policy Number: [id number] BS Janis Mehta PayID: [id number] [address] [address] [place] [address] Workers Effective: Policy Number: Tripp Mehta Compensation 2016 [id number] Insurance Onset: 2016 PayID: [id number] [address] [place] [address] Problems Date Description Provider Status Onset: 05/25/2015 [...] Date Description Comments 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 [address]: Joey Vargas MD REQ: [id number] RECD: 08/31/17160 STATUS: LYNETTE SOUTH DR: Leila Darnell MD _ ORDERED: LEVEL 4 COMMENTS: [id number] FINAL DIAGNOSIS Breast, right, 12:00, 2 cm [...] END OF REPORT * ML=Testing performed at [facility] DEPARTMENT OF PATHOLOGY, [address] [place] [address] Sebastian Villagran M.D. Director [facility] # [id number] 4 It is recognized that currently available [...] LEFT ANKLE, SEQU 7 SEE RESULTS BELOW [id number] SEMITEN TRANSFUSED 09/28/15 0814 Procedures Date CPT Code Description Status 11/30/2017 Mammogram Completed 07/27/2017 Mammogram Completed 10/17/2016 Mammogram Completed 10/09/2015 64909 Short Leg Cast Completed 09/28/2015 06363 Repair Collateral Ligament Ankle, Secondary Completed 09/28/2015 14772 Repair Collateral Ligament Ankle, Secondary Completed 2015 Bone Mineral Density Test Completed Encounters Type Date Location Provider CPT E/M Dx Office Visit 02/21/2018 [facility] Rody Benz M.D. 85721 R51 9:00a [facility] Of [facility] Office Visit 12/05/2017 [facility] [place] [address] N64.4 10:45a [facility] Office Visit 11/29/2017 [facility] Rody Benz M.D. 00228 R51 9:45a [facility] Office Visit 11/22/2017 [facility] Rody Benz M.D. 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 83530 R51 Services Of [facility] R51 F07.81 F07.81 Office Visit 08/29/2017 9:00a [facility] [place] [address] R92.8 [facility] N64.4 Office Visit 10/28/2016 3:15p [facility] Vishnu Banks 21433 M25.372 CJanis Echavarria Office Visit 06/06/2016 4:20p [facility] Cm Umaña 92447 Z20.6 Infectious Diseases Jericho Lopez Z79.899 Office Visit 02/16/2016 2:10p [facility] Vish[facility] Banks 87236 S93.402D Of Brooke Echavarria Office Visit 09/04/2015 10:10a [facility] Vishnu Banks, 38242 S93.402S Of Brooke Echavarria M25.572 Office Visit 08/07/2015 1:00p [facility] Fabian Blanco, 13417 S93.402S [facility] AT Azar Echavarria M76.72 M25.572 Office Visit 06/23/2015 8:45a [facility] Fabian Blanco, 57589 845.00 [facility] AT Azar Echavarria 719.47 Office Visit 05/25/2015 8:30a [facility] Fabian Blanco, 22261 845.00 C.Koby Echavarria 719.45 719.47 Office Visit 01/14/2015 1:15p [facility] Jadyn Trish, 22943 845.00 C.MNeo RPA-C 719.45 Plan of Care Future Appointment(s):04/24/2018 10:00 am - Vishnu Banks M.D. at [facility]08/24/2018 10:15 am - Rody Benz M.D. at [facility]04/10/2018 - Vishnu Banks M.D.G57.92 Unspecified mononeuropathy of left lower limbFollow up:2 weeks
[2018-05-06 10:09] VITALS: BP 134/93
--- NOTE | 2018-05-06 11:01 | UC ---
Respiratory Complaint HPI - HPI Summary HPI Summary: This is Andra skelton, documenting for attending Alin Hughes M.D. Pt is a 57 y/o F who presents to [facility] c/o respiratory symptoms. Pt reports that beginning on Monday (6 days ago), she had "really bad allergy symptoms" which she states is uncharacteristic as her allergies typically present at the end of the summer. Then, (3 days ago), she began experiencing swollen glands and tender/sore chest with a cough starting on Monday (2 days ago). Initially, the cough was productive, producing yellow sputum, though it is now nonproductive and dry with associated pain. Additionally c/o wheezing with exhalation. Has been taking antihistamines and is not on any immunosuppressants. - History of Current Complaint Chief Complaint: UCRespiratory Stated Complaint: COUGH,CONGESTED Time Seen by Provider: 05/06/18 10:53 Hx Obtained From: Patient Onset/Duration: Gradual Onset, Still Present Severity Currently: Moderate Pain Intensity: 4 Pain Scale Used: 0-10 Numeric Character: Cough: Nonproductive Aggravating Factors: Nothing Alleviating Factors: Nothing Related History: Seasonal Allergies - Allergies/Home Medications Allergies/Adverse Reactions: Allergies Allergy/AdvReac Type Severity Reaction Status Date / Time albuterol Allergy Headache Verified 05/06/18 10:19 codeine Allergy Vomiting Verified 05/06/18 10:16 levofloxacin [From Levaquin] Allergy See Comment Verified 05/06/18 10:16 nitrofurantoin Allergy Dizziness Verified 05/06/18 10:16 [From Macrobid] Penicillins Allergy Anaphylatic Verified 05/06/18 10:16 Shock Sulfa (Sulfonamide Allergy Headache Verified 05/06/18 10:18 Antibiotics) sulfate Allergy Anaphylatic Uncoded 05/06/18 10:16 Shock sulfites Allergy Hives Uncoded 05/06/18 10:16 PMH/Surg Hx/FS Hx/Imm Hx - Additional Past Medical History Additional PMH: NEGATIVE PMHx: COPD, DM, Asthma Cardiovascular History: Hypertension - Surgical History Surgical History: Yes Surgery Procedure, Year, and Place: appy, cholecystetomy, hernia repair, c- sections, lap for adhesions, hysterectomy, tubal ligation,left oopherectomy and right, left ankle recont. - Family History Known Family History: Positive: Hypertension, Other - pos: breast CA: grandmother; father allergic to novacaine - Social History Alcohol Use: None Substance Use Type: None Smoking Status (MU): Never Smoked Tobacco Have You Smoked in the Last Year: No - Immunization History Most Recent Influenza Vaccination: 2014 Hx Tetanus, Diphtheria Vaccination: Yes Vaccination Up to Date: Yes Review of Systems Constitutional: Other - "allergies" Skin: Negative Eyes: Negative ENT: Other - Swollen glands Respiratory: Cough, Other - Wheezing Cardiovascular: Other - Tender/sore chest Gastrointestinal: Negative Genitourinary: Negative Motor: Negative Neurovascular: Negative Musculoskeletal: Negative Neurological: Negative Psychological: Negative All Other Systems Reviewed And Are Negative: Yes Physical Exam - Summary Physical Exam Summary: General: well-appearing, no pain distress Skin: warm, color reflects adequate perfusion, dry Head: normal Eyes: EOMI, AZEB ENT: positive rhinorrhea Neck: supple, nontender Respiratory: expiratory wheezes with deep exhalation, breath sounds present Cardiovascular: RRR Abdomen: soft, nontender Bowel: present Musculoskeletal: normal, strength/ROM intact Neurological: sensory/motor intact, A&O x3 Psychological: affect/mood appropriate Triage Information Reviewed: Yes Vital Signs: Initial Vital Signs Temp 98.0 F 05/06/18 10:06 Pulse 81 05/06/18 10:06 Resp 18 05/06/18 10:06 BP 134/93 05/06/18 10:06 Pulse Ox 97 05/06/18 10:06 Vital Signs Reviewed: Yes UC Diagnostic Evaluation - Laboratory O2 Sat by Pulse Oximetry: 97 Respiratory Course/Dx - Course Course Of Treatment: Medications reviewed. Allergies noted. DISCUSSED VIRAL VERSES BACTERIAL INFECTIONS AND THE ROLE OF ANTIBIOTIC. THE PATIENT PREFERS TO BE ON ANTIBIOTICS AT THIS TIME. F/U PMD; RECHECK SOONER IF WORSE. - Differential Dx/Diagnosis Provider Diagnoses: BRONCHITIS WITH BRONCHOSPASM Discharge - Sign-Out/Discharge Documenting (check all that apply): Patient Departure - Discharge - Discharge Plan Condition: Stable Disposition: HOME Prescriptions: Azithromycin TAB* [Zithromax TAB (Z-CLARISSA) 250 mg #6 tabs] 2 tab PO .TODAY, THEN 1 DAILY #1 clarissa Ipratropium 0.5MG/2.5ML NEB* [Atrovent 0.5 MG NEB.HEAVENLY*] 0.5 mg INH Q6H PRN #20 neb.soln PRN Reason: Sob/Wheezing Patient Education Materials: Acute Bronchitis (ED), Bronchospasm (ED) Referrals: Napoleon Gregory MD [Primary Care Provider] - Additional Instructions: FOLLOW UP WITH YOUR DOCTOR IF NOT COMPLETELY IMPROVED. GET RECHECKED FOR ANY WORSENING OF YOUR CONDITION OR QUESTIONS OR CONCERNS. - Billing Disposition and Condition Condition: STABLE Disposition: Home
== END 2018-05-06 11:06 | disposition home or self-care (01) ==
LOC: UCEAST 09:45
DX: J40 Bronchitis, not specified as acute or chronic (principal); J98.01 Acute bronchospasm; I10 Essential (primary) hypertension; Z88.8 Allergy status to other drugs, medicaments and biological substances; Z88.5 Allergy status to narcotic agent; Z88.1 Allergy status to other antibiotic agents; Z88.0 Allergy status to penicillin; Z88.2 Allergy status to sulfonamides
CPT/HCPCS: 99212; G0463

== ENCOUNTER 2018-07-13 15:20 | Emergency (ER) | payer BC ==
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
--- OUTSIDE RECORDS SUMMARY | 2018-07-13 16:09 | XMS REPORT ---
:1960 External Reference #:[id number] Author Organization [facility] Address [address] [place] [address] Phone [phone] Care Team Providers Name Role Phone Napoleon Gregory MD Care Team Information Emergency Communications Operator Unavailable Napoleon Gregory MD Primary Care Physician Unavailable Payers Type Date Identification Numbers Payment Provider Subscriber Commercial Effective: Policy Number: [place] Daniel Mehta 2018 [id number] PayID: [id number] [place] [id number] Problems Date Description Provider Status Onset: 12/09/2014 Benign essential hypertension Napoleon Gregory M.D. Active Onset: 12/09/2014 Headache Napoleon Gregory M.D. Active Onset: 12/09/2014 Urinary tract infectious disease Napoleon Gregory M.D. Active Onset: 09/04/2015 Essential hypertension GLORIA Downing Active Onset: 03/09/2018 Postconcussion syndrome Napoleon Gregory M.D. Active Onset: 03/09/2018 Conductive hearing loss, bilateral Napoleon Gregory M.D. Active Onset: 03/09/2018 Generalized abdominal pain Napoleon Gregory M.D. Active Onset: 03/09/2018 Pain in limb Napoleon Gregory M.D. Active Onset: 12/11/2017 Adult health examination Napoleon Gregory M.D. Active Onset: 12/11/2017 Female climacteric state Napoleon Gregory M.D. Active Onset: 01/30/2017 Abdominal pain Napoleon Gregory M.D. Active Onset: 10/31/2016 Concussion without loss of Napoleon Gregory M.D. 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 from [employer], 03/09/18 to M.D. 09/07/2018 Xyzal Allergy 05/04 Active Tablets 5mg 30tab 1X daily Napoleon FAyanna 24H s [place] Gregory Out Of Work 03/09 Active out of work Napoleon FAyanna from [employer], 03/09/18 M.D. until 06/26/2018 Premarin 06/07 Active Tablets 0.9mg 90tab Take 1 N95.1 Napoleon F. s Tablet By [employer], Mouth Every M.D. Day Metoprolol 05/24 Active Tablets 25mg 90tab Take 1/2 I10 Napoleon F. Succinate ER ER 24HR s Tablet By [employer], Mouth Every M.D. Day Senior Vites 12/09 Active Tablets 1 po qd [facility] Indomethacin Active Capsules 50mg 1 capsule Napoleon F. / by mouth [employer], twice a day M.D. prn Loratadine 12/11 Hx Tablets 10mg 30tab 1 by mouth Napoleon F. /2017 s every day [employer], - M.D. 06/22 Cefdinir 11/21 Hx Capsules 300mg 14cap 1 by mouth N39.0 Bing /2018 s twice daily Jayla, - Has Taken [employer]PER[employer] 12/10 ins Wo Difficulty In Past Cephalexin 11/14 Hx Capsules 500mg 14cap 1 po bid x N39.0 Bing s 7 days Has Jayla, - Taken [employer] ATTEND[employer]IGHT SUPER[employer] 11/21 Keflex Without Difficulty In The Recent Past Levocetirizine 10/03 Hx Tablets 5mg 90tab 1 by mouth Napoleon F. Dihydrochloride s every day [employer], - M.D. 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 Biweek HR s patch to [facility], - skin 2 M.D. 06/07 times per week for menopausal symptoms Estradiol 06/06 Hx Pellet 10mg Napoleon F [employer], - M.D. 06/07 Cephalexin 05/29 Hx Capsules 500mg 10cap 1 by mouth N39.0 Jemima s twice a day Celio, - for 5 days FLIGHT ATTENDANT/INFLIGHT SUPERVISOR 06/11 Gabapentin 01/09 Hx Capsules 100mg 1 by mouth at bedtime - 04/11 Note 10/31 Hx out of work . from [employer], - 10/19/2016- M.D. 01/2910/31/2016 Note 10/31 Hx may return to work on [facility], - Monday M.D. 01/2911/01/2016 Out Of Work 10/21 Hx will be out of work [employer], - from Monday M.D. 11/0410/17/2016 to return Monday10/31/2016 for medical reasons Truvada 05/24 Hx Tablets 200-300mg 90tab Take 1 Napoleon F. s tablet by [employer], - mouth daily M.D. 09/24 Metoprolol 02/23 Hx Tablets 50mg 1 by mouth I10 Bing Succinate ER ER 24HR every day Jayla, - samples FLIGHT ATTENDANT/INFLIGHT SUPERVISOR 05/24 Xyzal 10/14 Hx Tablets 5mg 90tab Take 1 Napoleon F. s Tablet By Shalltorie, - Mouth Every M.D. Naproxen 03/05 Hx Tablets 500mg 40tab take 1 Napoleon F. /2014 s tablet by Shallish, - mouth every M.D. 09/04 12 hours as needed Xyzal 03/02 Hx Tablets 5mg 90tab take 1 Napoleon F. /2014 s tablet by Shallish, - mouth one M.D. 09/04 time Metoprolol 01/08 Hx Tablets 25mg 90tab 1 tab by I10 Napoleon F. Succinate ER ER 24HR s mouth every Shallish, - day M.D. 02/23 Metoprolol 12/09 Hx Tablets 25mg 1/2 by [facility] Succinate ER 24HR mouth every [facility] 01/08 Of Calcium Citrate 12/09 Hx Tablets 1200mg 2 po qd [facility] 09/04 Of Butalbital/Aceta 12/09 Hx Tablets 50-325-40 30tab take 1 to 2 Napoleon F. minophen/Caffein /2014 mg s tablets [employer], e - four times M.D. 03/08 a day needed for headache Premarin 12/09 Hx Tablets 0.9mg 90tab take 1 N95.1 Napoleon F. /2014 s tablet by [employer], - mouth every M.D. Tramadol HCL Hx Tablets 50mg 20tab 1 by mouth Napoleon F. / s every 6 Shallish, - hours as M.D. 01/29 Cefuroxime Hx Tablets 500mg 1 by mouth Unknown Axetil /0000 twice a day - (Started 06/11 03/02)- ER Flomax Hx Capsules 0.4mg take one Unknown capsule by - mouth one 09/04 time Ibuprofen Hx Tablets 600mg 60tab 1 tab by Napoleon F. /0000 s mouth every Shallish, - 8 hours as M.D. 01/29 pain. take with food Amitriptyline Hx Tablets 75mg qd Unknown HCL /0000 - 06/11 Xyzal Hx Tablets 5mg 1X daily Unknown /0000 - 05/04 Medications Administered in Office Medication Date Status Form Strength Qnty SIG Indications Ordering Provider TB Intradermal Administered Injection Bing Test GLORIA Barcenas TB Intradermal Administered Injection Napoleon Gregory M.D. Immunizations CPT Code Status Date Vaccine Lot # [id number] Given 10/03/2017 Influenza vac quadrivalent preservative free 3yrs [id number] [place] [id number] Given 06/11/2015 Tdap Tetanus, W Pertussis [id number] Vital Signs Date Vital Result Comment 06/22/2018 BP Systolic 130 mmHg BP Diastolic 70 mmHg Heart Rate 80 /min Body Temperature 97.7 F Respiratory Rate 20 /min Weight 211.25 lb 03/09/2018 BP Systolic 110 mmHg BP Diastolic 70 mmHg Heart Rate 96 /min Body Temperature 98.6 F Height 65 inches 5'5" Weight 208.00 lb BMI (Body Mass Index) 34.6 kg/m2 12/11/2017 BP Systolic 106 mmHg BP Diastolic 78 mmHg Heart Rate 78 /min Body Temperature 98.6 F Height 65 inches 5'5" Weight 207.00 lb BMI (Body Mass Index) 34.4 kg/m2 11/14/2017 BP Systolic 130 mmHg BP Diastolic 88 mmHg Heart Rate 60 /min Body Temperature 97.2 F Respiratory Rate 16 /min Height 65.25 inches 5'5.25" Weight 205.00 lb BMI (Body Mass Index) 33.8 kg/m2 10/03/2017 BP Systolic 128 mmHg BP Diastolic 76 mmHg Heart Rate 72 /min Body Temperature 98.2 F Respiratory Rate 16 /min Height 65.25 inches 5'5.25" Weight 207.00 lb BMI (Body Mass Index) 34.2 kg/m2 08/21/2017 BP Systolic 122 mmHg BP Diastolic 75 mmHg Heart Rate 80 /min Body Temperature 97.9 F Height 65.25 inches 5'5.25" Weight 207.00 lb BMI (Body Mass Index) 34.2 kg/m2 07/06/2017 BP Systolic 114 mmHg BP Diastolic 68 mmHg Heart Rate 68 /min Body Temperature 98.8 F Respiratory Rate 16 /min Height 65.25 inches 5'5.25" Weight 204.25 lb BMI (Body Mass Index) 33.7 kg/m2 06/12/2017 BP Systolic 106 mmHg BP Diastolic 72 mmHg Heart Rate 66 /min Body Temperature 97.2 F Height 65.25 inches 5'5.25" Weight 202.00 lb BMI (Body Mass Index) 33.4 kg/m2 05/29/2017 BP Systolic 110 mmHg BP Diastolic 80 mmHg Heart Rate 68 /min Body Temperature 98.5 F Respiratory Rate 18 /min Weight 201.00 lb 04/11/2017 BP Systolic 108 mmHg BP Diastolic 74 mmHg Heart Rate 76 /min Body Temperature 98.6 F Respiratory Rate 16 /min Height 65.25 inches 5'5.25" Weight 200.00 lb BMI (Body Mass Index) 33.0 kg/m2 03/14/2017 BP Systolic 110 mmHg BP Diastolic 80 mmHg Heart Rate 74 /min Body Temperature 98.8 F Respiratory Rate 16 /min Height 65.25 inches 5'5.25" Weight 202.00 lb BMI (Body Mass Index) 33.4 kg/m2 01/30/2017 BP Systolic 118 mmHg BP Diastolic 86 mmHg Heart Rate 72 /min Body Temperature 98.2 F Height 65.25 inches 5'5.25" Weight 201.12 lb BMI (Body Mass Index) 33.2 kg/m2 12/13/2016 BP Systolic 120 mmHg BP Diastolic 72 mmHg Heart Rate 60 /min Respiratory Rate 16 /min Height 65.25 inches 5'5.25" Weight 203.00 lb BMI (Body Mass Index) 33.5 kg/m2 10/31/2016 BP Systolic 116 mmHg BP Diastolic 80 mmHg Heart Rate 60 /min Body Temperature 98.1 F Respiratory Rate 16 /min Height 65.25 inches 5'5.25" 10/21/2016 BP Systolic 138 mmHg BP Diastolic 84 mmHg Heart Rate 64 /min Body Temperature 97.9 F Respiratory Rate 18 /min Height 65.25 inches 5'5.25" Weight 200.00 lb BMI (Body Mass Index) 33.0 kg/m2 09/29/2016 BP Systolic 110 mmHg BP Diastolic 64 mmHg Heart Rate 70 /min Body Temperature 98.8 F Respiratory Rate 16 /min Height 65.25 inches 5'5.25" 09/24/2016 BP Systolic 126 mmHg BP Diastolic 82 mmHg Heart Rate 68 /min Body Temperature 97.3 F Respiratory Rate 16 /min Height 65.25 inches 5'5.25" Weight 202.00 lb BMI (Body Mass Index) 33.4 kg/m2 05/24/2016 BP Systolic 120 mmHg BP Diastolic 70 mmHg Heart Rate 70 /min Respiratory Rate 16 /min Height 65.25 inches 5'5.25" Weight 204.00 lb BMI (Body Mass Index) 33.7 kg/m2 03/08/2016 BP Systolic 113 mmHg BP Diastolic 60 mmHg Heart Rate 80 /min 02/24/2016 BP Systolic 128 mmHg BP Diastolic 80 mmHg Heart Rate 80 /min Body Temperature 98.0 F Respiratory Rate 18 /min Height 65.25 inches 5'5.25" measured 12/09/14 Weight 202.00 lb BMI (Body Mass Index) 33.4 kg/m2 12/17/2015 BP Systolic 124 mmHg BP Diastolic 82 mmHg Heart Rate 68 /min Body Temperature 98.4 F Respiratory Rate 16 /min Height 65.25 inches 5'5.25" measured 12/09/14 Weight 198.00 lb BMI (Body Mass Index) 32.7 kg/m2 11/18/2015 BP Systolic 120 mmHg BP Diastolic 80 mmHg Heart Rate 72 /min Body Temperature 98.1 F Respiratory Rate 16 /min Height 65.25 inches 5'5.25" measured 12/09/14 Weight 198.00 lb BMI (Body Mass Index) 32.7 kg/m2 09/04/2015 BP Systolic 118 mmHg BP Diastolic 80 mmHg Heart Rate 64 /min Body Temperature 97.9 F Respiratory Rate 18 /min Height 66 inches 5'6" measured 12/09/14 08/03/2015 BP Systolic 112 mmHg BP Diastolic 82 mmHg Heart Rate 76 /min Body Temperature 97.9 F Height 66 inches 5'6" measured 12/09/14 Weight 184.00 lb BMI (Body Mass Index) 29.7 kg/m2 06/11/2015 BP Systolic 118 mmHg BP Diastolic 70 mmHg Heart Rate 64 /min Body Temperature 97.6 F Respiratory Rate 16 /min Height 66 inches 5'6" measured 12/09/14 Weight 196.12 lb BMI (Body Mass Index) 31.7 kg/m2 03/05/2015 BP Systolic 124 mmHg BP Diastolic 86 mmHg Heart Rate 69 /min Body Temperature 96.9 F Respiratory Rate 18 /min O2 % BldC Oximetry 94 % DX: Pneumonia Height 66 inches 5'6" measured 12/09/14 Weight 191.50 lb BMI (Body Mass Index) 30.9 kg/m2 12/09/2014 BP Systolic 138 mmHg BP Diastolic 88 mmHg Heart Rate 66 /min Body Temperature 96.8 F Respiratory Rate 16 /min Height 66 inches 5'6" measured 12/09/14 Weight 196.12 lb BMI (Body Mass Index) 31.7 kg/m2 Results Test Date Test Result H/L [...] 64.8 >60 GFR Eastct 83.3 >60 2 Comprehensive Metabolic Prof 12/11/2017 Sodium 138 mEq/L 134-149 Potassium 3.9 mEq/L 3.6-5.5 Chloride 103 mEq/L 94-112 Carbon Dioxide 29 mEq/L 21-32 Glucose 100 mg/dL 70-105 BUN 11 mg/dL 6-26 Creatinine 0.8 mg/dL 0.6-1.4 BUN/Creat Ratio 13.8 CALC 8.0-36.0 Calcium 9.4 mg/dL 8.6-10.2 Total Protein 7.3 g/dL 6.4-8.3 Albumin 4.2 g/dL 3.8-5.5 Globulin 3.1 g/dL 2.0-4.8 A/G Ratio 1.4 CALC 0.6-2.3 Alk. Phosphatase 58 U/L 30-110 Alt (SGPT) 17 U/L 7-35 Ast (Sgot) 19 U/L 5-34 Total Bilirubin 0.3 mg/dL 0.2-1.3 GFR Non- >60 ml/min/1.73m^ >=60 GFR >60 ml/min/1.73m^ >=60 Lipid Profile 12/11/2017 Cholesterol 223 mg/dL High 120-200 Triglycerides 157 mg/dL 30-200 HDL Cholesterol 62 mg/dL 30-85 LDL (Calculated) 130 CALC High 0-129 VLDL Cholesterol 31 mg/dL 0-50 HDL Risk Factor 3.6 CALC 0.0-4.4 Laboratory test finding 12/11/2017 Free T4 0.88 ng/dL 0.75-1.54 TSH 3.34 mIU/L 0.50-6.00 CBC Electronic Fma 12/11/2017 WBC 4.3 x10^3/UL 4.0-10.0 RBC 4.52 x10^6/UL 3.93-6.00 HGB 14.1 g/dL 12.0-17.0 HCT 41 % 35-50 MCV 89.6 fL 80.0-95.0 MCH 31.2 pg 25.6-32.2 MCHC 34.8 g/dL 32.2-36.0 RDW-CV 12.4 % 11.6-14.4 PLT 191 x10^3/UL 163-400 MPV 10.5 fL 9.4-12.4 Meka# 1.82 x10^3/UL 1.56-6.13 Lymph# 1.97 x10^3/UL 1.18-3.74 Roane# 0.25 x10^3/UL 0.24-0.82 Eos # 0.2 x10^3/UL 0.0-0.5 Baso # 0.02 x10^3/UL 0.01-0.08 Meka% 42.7 % 34.0-70.0 Lymph % 46.4 % 20.0-52.0 Roane% 5.9 % 5.0-12.0 Eos% 4.5 % 0.7-7.0 Baso% 0.5 % 0.1-1.2 Ua - Non Micro (a) 12/11/2017 Appearance clear Color yellow Glucose, Urine (Fma/CMC/CTX) neg Bilirubin neg Ketones neg SP Grav 1.015 Blood neg PH 7.0 Protein neg Urobil 0.2 Nitrite neg Leukocytes (Fma/CMC/[facility]) neg Laboratory test finding 12/11/2017 HCV AB non-reactive non-reactive HIV 1&2 Antibody Screen ([facility]) negative Negative GC/Chlamydia Amplified Rna 12/11/2017 Chlamydia trachomatis Rna Negative Negative 3 Neisseria gonorrhoeae (GC) Rna Negative Negative 3 Laboratory test 12/11/2017 Syphillis Igg Nonreactive Nonreactive 3, 4 finding W/Reflex RPR Hepatitis B Surface Ag Nonreactive Nonreactive 3, 5 Ua - Non Micro (a) 11/14/2017 Appearance cloudy Color yellow Glucose, Urine (Fma/CMC/CTX) neg Bilirubin neg Ketones neg SP Grav 1.010 Blood mod PH 6.5 Protein neg Urobil 0.2 Nitrite neg Leukocytes (Fma/CMC/[facility]) mod Laboratory test 11/14/2017 Urine Culture And SEE RESULT BELOW 6 finding Sensitivities Laboratory test 08/19/2017 Point of Care Glucose 131 mg/dL High 70-100 7 finding Ua - Micro (Fma) 05/29/2017 Appearance CLEAR Color YELLOW Glucose, Urine (Fma/CMC/CTX) NEG Bilirubin NEG Ketones NEG SP Grav <=1.005 Blood NEG PH 5.5 Protein NEG Urobil 0.2 Nitrite NEG Leukocytes (Fma/CMC/[facility]) NEG Hyaline - /Lpf Granular - /Lpf WBC ([facility]) - RBC - Mucus - /Lpf Epith - /Lpf Bacteria - /Hpf Amorphous - /Lpf Crystals, Fluid (Fma/CMC/CTX) - Z#Comments - Laboratory test finding 05/29/2017 Urine Culture ([facility]) neg @48hr Ua - Micro ([facility]) 01/30/2017 Appearance clear Color yellow Glucose, Urine (Fma/CMC/CTX) neg Bilirubin neg Ketones neg SP Grav 1.010 Blood neg PH 7.0 Protein neg Urobil 0.2 Nitrite neg Leukocytes (a/CMC/[facility]) neg WBC ([facility]) 0-1 Epith rare /Lpf Ict Hemoccult ([facility]) 12/30/2016 Ict Hemoccult (1) 12/16/16 neg Ict Hemoccult-(2) 12/17/16 neg Ict-Hemoccult (3) 12/18/16 neg Laboratory test finding 11/29/2016 Stool Occult Blood SEE RESULT BELOW 8, 9 Type & Screen 11/29/2016 Patient Blood Type A Positive 8 Antibody Screen NEGATIVE 8 CBC Auto Diff 11/29/2016 White Blood Count 4.6 10^3/uL 3.5-10.8 8 Red Blood Count 3.99 10^6/uL Low 4.0-5.4 8 Hemoglobin 12.6 g/dL 12.0-16.0 8 Hematocrit 37 % 35-47 8 Mean Corpuscular Volume 93 fL 80-97 8 Mean Corpuscular Hemoglobin 32 pg High 27-31 8 Mean Corpuscular HGB Conc 34 g/dL 31-36 8 Red Cell Distribution Width 13 % 10.5-15 8 Platelet Count 155 10^3/uL 150-450 8 Mean Platelet Volume 10 um3 7.4-10.4 8 Abs Neutrophils 2.2 10^3/uL 1.5-7.7 8 Abs Lymphocytes 1.9 10^3/uL 1.0-4.8 8 Abs Monocytes 0.3 10^3/uL 0-0.8 8 Abs Eosinophils 0.2 10^3/uL 0-0.6 8 Abs Basophils 0 10^3/uL 0-0.2 8 Abs Nucleated RBC 0 10^3/uL 8 Granulocyte % 47.1 % 38-83 8 Lymphocyte % 41.2 % 25-47 8 Monocyte % 6.3 % 1-9 8 Eosinophil % 4.6 % 0-6 8 Basophil % 0.8 % 0-2 8 Nucleated Red Blood Cells % 0 8 Comp Metabolic Panel 11/29/2016 Sodium 134 mmol/L 133-145 8 Potassium 4.1 mmol/L 3.5-5.0 8 Chloride 104 mmol/L 101-111 8 Co2 Carbon Dioxide 27 mmol/L 22-32 8 Anion Gap 3 mmol/L 2-11 8 Glucose 82 mg/dL 70-100 8 Blood Urea Nitrogen 14 mg/dL 6-24 8 Creatinine 0.93 mg/dL 0.51-0.95 8 BUN/Creatinine Ratio 15.1 8-20 8 Calcium 8.7 mg/dL 8.6-10.3 8 Total Protein 6.5 g/dL 6.4-8.9 8 Albumin 3.4 g/dL 3.2-5.2 8 Globulin 3.1 g/dL 2-4 8 Albumin/Globulin Ratio 1.1 1-3 8 Total Bilirubin 0.30 mg/dL 0.2-1.0 8 Alkaline Phosphatase 49 U/L 34-104 8 Alt 16 U/L 7-52 8 Ast 18 U/L 13-39 8 Egfr Non- 62.6 >60 8 Egfr 80.5 >60 8, 10 Laboratory test finding 11/29/2016 Partial Thrombo Time 23.7 seconds Low 26.0-36.3 8 PTT Inr/Protime 11/29/2016 Inr 0.90 0.89-1.11 8 Laboratory test finding 10/19/2016 Partial Thrombo Time 24.3 seconds Low 26.0-36.3 PTT Inr/Protime 10/19/2016 Inr 0.86 Low 0.89-1.11 CBC Auto Diff 10/19/2016 White Blood Count 4.0 10^3/uL 3.5-10.8 Red Blood Count 4.29 10^6/uL 4.0-5.4 Hemoglobin 13.6 g/dL 12.0-16.0 Hematocrit 40 % 35-47 Mean Corpuscular Volume 93 fL 80-97 Mean Corpuscular Hemoglobin 32 pg High 27-31 Mean Corpuscular HGB Conc 34 g/dL 31-36 Red Cell Distribution Width 12 % 10.5-15 Platelet Count 160 10^3/uL 150-450 Mean Platelet Volume 9 um3 7.4-10.4 Abs Neutrophils 1.9 10^3/uL 1.5-7.7 Abs Lymphocytes 1.6 10^3/uL 1.0-4.8 Abs Monocytes 0.2 10^3/uL 0-0.8 Abs Eosinophils 0.2 10^3/uL 0-0.6 Abs Basophils 0 10^3/uL 0-0.2 Abs Nucleated RBC 0 10^3/uL Granulocyte % 46.8 % 38-83 Lymphocyte % 40.3 % 25-47 Monocyte % 6.1 % 1-9 Eosinophil % 5.8 % 0-6 Basophil % 1.0 % 0-2 Nucleated Red Blood Cells % 0.1 Comp Metabolic Panel 10/19/2016 Sodium 135 mmol/L 133-145 Potassium 4.3 mmol/L 3.5-5.0 Chloride 105 mmol/L 101-111 Co2 Carbon Dioxide 27 mmol/L 22-32 Anion Gap 3 mmol/L 2-11 Glucose 86 mg/dL 70-100 Blood Urea Nitrogen 15 mg/dL 6-24 Creatinine 0.96 mg/dL High 0.51-0.95 BUN/Creatinine Ratio 15.6 8-20 Calcium 9.1 mg/dL 8.6-10.3 Total Protein 7.2 g/dL 6.4-8.9 Albumin 3.8 g/dL 3.2-5.2 Globulin 3.4 g/dL 2-4 Albumin/Globulin Ratio 1.1 1-3 Total Bilirubin 0.30 mg/dL 0.2-1.0 Alkaline Phosphatase 63 U/L 34-104 Alt 13 U/L 7-52 Ast 14 U/L 13-39 Egfr Non- 60.3 >60 Egfr 77.6 >60 11 Laboratory test finding 10/19/2016 C Reactive Protein 2.87 mg/L < 5.00 12 Lipid Profile 12/17/2015 Cholesterol 175 mg/dL 120-200 Triglycerides 192 mg/dL 30-200 HDL Cholesterol 47 mg/dL 30-85 LDL (Calculated) 90 CALC 0-129 VLDL Cholesterol 38 mg/dL 0-50 HDL Risk Factor 3.7 CALC 0.0-4.4 Complete Blood Count 12/17/2015 WBC 4.7 x10^3/UL 3.6-9.6 RBC 4.07 x10^6/UL 3.90-5.70 HGB 13.5 g/dL 12.1-17.2 HCT 38 % 36-50 MCV 94.0 fL 82.2-97.4 MCH 33.2 pg 27.6-33.3 MCHC 35.3 g/dL 33.0-35.5 RDW 13.8 % High 11.6-13.7 PLT 230 x10^3/UL 150-400 MPV 8.3 fL 7.4-10.4 Gran # 3.3 x10^3/UL 1.5-7.2 Lymph# 1.3 x10^3/UL 0.7-4.9 Roane# 0.1 x10^3/UL 0.1-0.9 Gran % 67.8 % 42.2-75.2 Lymph % 28.7 % 20.5-51.1 Roane% 3.5 % 1.7-9.3 Laboratory test finding 12/17/2015 TSH 2.50 mIU/L 0.50-6.00 Comprehensive Metabolic Prof 11/18/2015 Sodium 142 mEq/L 134-149 Potassium 4.5 mEq/L 3.6-5.5 Chloride 103 mEq/L 94-112 Carbon Dioxide 27 mEq/L 21-32 Glucose 78 mg/dL 70-105 BUN 14 mg/dL 6-26 Creatinine 0.9 mg/dL 0.6-1.4 BUN/Creat Ratio 15.6 CALC 8.0-36.0 Calcium 9.3 mg/dL 8.6-10.2 Total Protein 7.5 g/dL 6.4-8.3 Albumin 3.9 g/dL 3.8-5.5 Globulin 3.6 g/dL 2.0-4.8 A/G Ratio 1.1 CALC 0.6-2.3 Alk. Phosphatase 67 U/L 30-110 Alt (SGPT) 14 U/L 7-35 Ast (Sgot) 19 U/L 5-34 Total Bilirubin 0.3 mg/dL 0.2-1.3 GFR Non- >60 ml/min/1.73m^ >=60 GFR >60 ml/min/1.73m^ >=60 Ua - Non Micro (Fma) 11/18/2015 Appearance yellow Color clear Glucose, Urine (Fma/CMC/CTX) neg Bilirubin neg Ketones neg SP Grav <=1.005 Blood neg PH 6.0 Protein neg Urobil 0.2 eu/dl Nitrite neg Leukocytes ([facility]ma/CMC/[facility]) neg Pap W/RFX High Risk HPV 11/18/2015 Diagn See Comment: 13 Adeq See Comment: 14 [email or web address] See Comment: 15 Perfor See Comment: 16 Comm . Note See Comment: 17 Iglbp See Comment: 18 Reflex See Comment: 19 Laboratory test 11/18/2015 PDF [id number] SEE IMAGE finding Laboratory test 11/18/2015 Creatinine Random Urine 3.7 finding Laboratory test 09/27/2015 Semiten SEE RESULTS BELO 20, 21 finding <SEE NOTE> Laboratory test 09/23/2015 Misc Lab Test see scanned finding Laboratory test 09/04/2015 Urine Microalbumin (Fma) <5.0 finding Ua - Micro (Fma) 09/04/2015 Appearance CLEAR Color YELLOW Glucose, Urine (Fma/CMC/CTX) NEG Bilirubin NEG Ketones NEG SP Grav 1.010 Blood NEG PH 7.0 Protein NEG Urobil 0.2 Nitrite NEG Leukocytes ([facility]ma/CMC/[facility]) NEG Hyaline - /Lpf Granular - /Lpf WBC ([facility]ma,[facility]) 0-1 RBC - Mucus (Fma/CBC/[facility]) - /Lpf Epith RARE /Lpf Bacteria - /Hpf Amorphous (Fma/CMC/[facility]) - /Lpf Crystals, Fluid (Fma/CMC/CTX) - Z#Comments - Laboratory test finding 09/04/2015 C Reactive Protein 3.34 mg/L < 5.00 22 Laboratory test finding 09/04/2015 CK 38 U/L 26-140 Comprehensive Metabolic Prof 09/04/2015 Sodium 136 mEq/L 134-149 Potassium 4.6 mEq/L 3.6-5.5 Chloride 99 mEq/L 94-112 Carbon Dioxide 27 mEq/L 21-32 Glucose 85 mg/dL 70-105 BUN 11 mg/dL 6-26 Creatinine 0.9 mg/dL 0.6-1.4 BUN/Creat Ratio 12.2 CALC 8.0-36.0 Calcium 9.1 mg/dL 8.6-10.2 Total Protein 7.6 g/dL 6.4-8.3 Albumin 4.1 g/dL 3.8-5.5 Globulin 3.5 g/dL 2.0-4.8 A/G Ratio 1.2 CALC 0.6-2.3 Alk. Phosphatase 84 U/L 30-110 Alt (SGPT) 16 U/L 7-35 Ast (Sgot) 23 U/L 5-34 Total Bilirubin 0.6 mg/dL 0.2-1.3 GFR Non- >60 ml/min/1.73m^ >=60 GFR >60 ml/min/1.73m^ >=60 Ua - Micro (Fma) 08/03/2015 Appearance CLEAR Color YELLOW Glucose, Urine (Fma/CMC/CTX) NEG Bilirubin NEG Ketones NEG SP Grav 1.010 Blood NEG PH 6.5 Protein NEG Urobil 0.2 Nitrite NEG Leukocytes (a/[facility]) NEG RBC 0-1 Epith RARE /Lpf Laboratory test finding 07/31/2015 Lipase 32 U/L 11.0-82.0 C Reactive Protein 7.32 mg/L High < 5.00 23 Comp Metabolic Panel 07/31/2015 Sodium 136 mmol/L 133-145 Potassium 3.8 mmol/L 3.5-5.0 Chloride 104 mmol/L 101-111 Co2 Carbon Dioxide 25 mmol/L 22-32 Anion Gap 7 mmol/L 2-11 Glucose 89 mg/dL 70-100 Blood Urea Nitrogen 17 mg/dL 6-24 Creatinine 1.15 mg/dL High 0.51-0.95 BUN/Creatinine Ratio 14.8 8-20 Calcium 9.4 mg/dL 8.6-10.3 Total Protein 7.4 g/dL 6.4-8.9 Albumin 3.7 g/dL 3.2-5.2 Globulin 3.7 g/dL 2-4 Albumin/Globulin Ratio 1.0 1-3 Total Bilirubin 0.30 mg/dL 0.2-1.0 Alkaline Phosphatase 67 U/L 34-104 Alt 12 U/L 7-52 Ast 18 U/L 13-39 Egfr Non- 49.2 >60 Egfr 63.2 >60 24 CBC Auto Diff 07/31/2015 White Blood Count 4.8 10^3/uL 4.8-10.8 Red Blood Count 4.36 10^6/uL 4.0-5.4 Hemoglobin 13.8 g/dL 12.0-16.0 Hematocrit 40 % 35-47 Mean Corpuscular Volume 93 fL 80-97 Mean Corpuscular Hemoglobin 32 pg High 27-31 Mean Corpuscular HGB Conc 34 g/dL 31-36 Red Cell Distribution Width 13 % 10.5-15 Platelet Count 176 10^3/uL 150-450 Mean Platelet Volume 9 um3 7.4-10.4 Abs Neutrophils 2.2 10^3/uL 1.5-7.7 Abs Lymphocytes 1.8 10^3/uL 1.0-4.8 Abs Monocytes 0.4 10^3/uL 0-0.8 Abs Eosinophils 0.3 10^3/uL 0-0.6 Abs Basophils 0.1 10^3/uL 0-0.2 Abs Nucleated RBC 0 10^3/uL Granulocyte % 46.8 % 38-83 Lymphocyte % 38.1 % 25-47 Monocyte % 7.5 % 1-9 Eosinophil % 6.0 % 0-6 Basophil % 1.6 % 0-2 Nucleated Red Blood Cells % 0.1 Laboratory test finding 07/21/2015 Lactic Acid 0.5 mmol/L 0.5-2.2 Comp Metabolic Panel 07/21/2015 Sodium 137 mmol/L 133-145 Potassium 3.6 mmol/L 3.5-5.0 Chloride 103 mmol/L 101-111 Co2 Carbon Dioxide 28 mmol/L 22-32 Anion Gap 6 mmol/L 2-11 Glucose 87 mg/dL 70-100 Blood Urea Nitrogen 17 mg/dL 6-24 Creatinine 1.25 mg/dL High 0.51-0.95 BUN/Creatinine Ratio 13.6 8-20 Calcium 8.9 mg/dL 8.6-10.3 Total Protein 7.2 g/dL 6.4-8.9 Albumin 3.7 g/dL 3.2-5.2 Globulin 3.5 g/dL 2-4 Albumin/Globulin Ratio 1.1 1-3 Total Bilirubin 0.20 mg/dL 0.2-1.0 Alkaline Phosphatase 70 U/L 34-104 Alt 13 U/L 7-52 Ast 15 U/L 13-39 Egfr Non- 44.7 >60 Egfr 57.4 >60 25 Urinalysis Profile 07/21/2015 Urine Color Yellow Urine Appearance Clear Urine Specific [place] 1.010 1.010-1.030 Urine pH 6.0 5-9 Urine Urobilinogen Negative Negative Urine Ketones Negative Negative Urine Protein Negative Negative Urine Leukocytes Trace Negative Urine Blood Negative Negative Urine Nitrite Negative Negative Urine Bilirubin Negative Negative Urine Glucose Negative Negative Urine White Blood Cell 1+(6-10/hpf) Absent Urine Red Blood Cell Trace(0-2/hpf) Absent Urine Bacteria Absent Absent Urine Hyaline Casts Present Absent Laboratory test 07/21/2015 Urine Culture And SEE RESULT 26 finding Sensitivities BELOW CBC Auto Diff 07/21/2015 White Blood Count 4.5 10^3/uL Low 4.8-10.8 Red Blood Count 4.22 10^6/uL 4.0-5.4 Hemoglobin 13.3 g/dL 12.0-16.0 Hematocrit 39 % 35-47 Mean Corpuscular Volume 93 fL 80-97 Mean Corpuscular Hemoglobin 32 pg High 27-31 Mean Corpuscular HGB Conc 34 g/dL 31-36 Red Cell Distribution Width 13 % 10.5-15 Platelet Count 150 10^3/uL 150-450 Mean Platelet Volume 9 um3 7.4-10.4 Abs Neutrophils 2.1 10^3/uL 1.5-7.7 Abs Lymphocytes 1.6 10^3/uL 1.0-4.8 Abs Monocytes 0.4 10^3/uL 0-0.8 Abs Eosinophils 0.3 10^3/uL 0-0.6 Abs Basophils 0.1 10^3/uL 0-0.2 Abs Nucleated RBC 0 10^3/uL Granulocyte % 47.7 % 38-83 Lymphocyte % 36.0 % 25-47 Monocyte % 8.4 % 1-9 Eosinophil % 6.5 % High 0-6 Basophil % 1.4 % 0-2 Nucleated Red Blood Cells % 0 Laboratory test 07/19/2015 Urine Culture And SEE RESULT BELOW 27 finding Sensitivities Laboratory test 06/05/2015 Urine Culture And SEE RESULT BELOW 28 finding Sensitivities Complete Blood Count 03/05/2015 WBC 4.5 x10^3/UL 3.6-9.6 RBC 4.72 x10^6/UL 3.90-5.70 HGB 14.6 g/dL 12.1-17.2 HCT 43 % 36-50 MCV 92.0 fL 82.2-97.4 MCH 31.0 pg 27.6-33.3 MCHC 33.6 g/dL 33.0-35.5 RDW 13.5 % 11.6-13.7 PLT 216 x10^3/UL 150-400 MPV 7.9 fL 7.4-10.4 Gran # 3.2 x10^3/UL 1.5-7.2 Lymph# 1.1 x10^3/UL 0.7-4.9 Roane# 0.2 x10^3/UL 0.1-0.9 Gran % 69.4 % 42.2-75.2 Lymph % 25.9 % 20.5-51.1 Roane% 4.7 % 1.7-9.3 Comprehensive Metabolic Prof 03/05/2015 Sodium 139 mEq/L 134-149 Potassium 4.5 mEq/L 3.6-5.5 Chloride 99 mEq/L 94-112 Carbon Dioxide 28 mEq/L 21-32 Glucose 84 mg/dL 70-105 BUN 12 mg/dL 6-26 Creatinine 0.9 mg/dL 0.6-1.4 BUN/Creat Ratio 13.3 CALC 8.0-36.0 Calcium 9.3 mg/dL 8.6-10.2 Total Protein 7.3 g/dL 6.4-8.3 Albumin 4.0 g/dL 3.8-5.5 Globulin 3.3 g/dL 2.0-4.8 A/G Ratio 1.2 CALC 0.6-2.3 Alk. Phosphatase 82 U/L 30-110 Alt (SGPT) 16 U/L 7-35 Ast (Sgot) 18 U/L 5-34 Total Bilirubin 0.3 mg/dL 0.2-1.3 Laboratory test finding 03/05/2015 Troponin <0.06 ng/mL Low 0.00-2.30 29 Laboratory test finding 03/05/2015 Sed Rate 17mm (Fma/CMC/Centrex) D Dimer Quantitative <100 ng/mL 0.0-400 Laboratory test finding 03/05/2015 C-Reactive Protein 11.5 mg/L High 0.0- 5.0 30 Catecholamine 24HR Urine 03/03/2015 Urine Collection 24 h Fract Duration Urine Total Volume 3250 mL Urine Norepinephrine 46 mcg/24h 15-80 Urine Epinephrine 2.3 mcg/24h <21 Urine Dopamine 312 mcg/24h 65-400 31 Urine Metanephrines 24HR 03/03/2015 Urine Metanephrine 120 mcg/24h 32 Urine Normetanephrine 562 mcg/24h 33 Urine Total Metanephrines 682 mcg/24h 34 Urine Collection Duration 24 h Urine Volume 3250 mL 35 CBC Auto Diff 03/01/2015 White Blood Count 7.1 10^3/uL 4.8-10.8 Red Blood Count 4.27 10^6/uL 4.0-5.4 Hemoglobin 13.4 g/dL 12.0-16.0 Hematocrit 39 % 35-47 Mean Corpuscular Volume 91 fL 80-97 Mean Corpuscular Hemoglobin 31 pg 27-31 Mean Corpuscular HGB Conc 34 g/dL 31-36 Red Cell Distribution Width 13 % 10.5-15 Platelet Count 195 10^3/uL 150-450 Mean Platelet Volume 9 um3 7.4-10.4 Abs Neutrophils 5.1 10^3/uL 1.5-7.7 Abs Lymphocytes 1.3 10^3/uL 1.0-4.8 Abs Monocytes 0.4 10^3/uL 0-0.8 Abs Eosinophils 0.2 10^3/uL 0-0.6 Abs Basophils 0 10^3/uL 0-0.2 Abs Nucleated RBC 0.01 10^3/uL Granulocyte % 72.3 % 38-83 Lymphocyte % 18.9 % Low 25-47 Monocyte % 5.1 % 1-9 Eosinophil % 3.0 % 0-6 Basophil % 0.7 % 0-2 Nucleated Red Blood Cells % 0.1 Laboratory test 03/01/2015 D Dimer Quantitative < 200 ng/mL Less Than 230 36 finding Lactic Acid 0.6 mmol/L 0.5-2.2 Comp Metabolic Panel 03/01/2015 Sodium 135 mmol/L 133-145 Potassium 3.7 mmol/L 3.5-5.0 Chloride 105 mmol/L 101-111 Co2 Carbon Dioxide 25 mmol/L 22-32 Anion Gap 5 mmol/L 2-11 Glucose 96 mg/dL 70-100 Blood Urea Nitrogen 16 mg/dL 6-24 Creatinine 1.13 mg/dL High 0.51-0.95 BUN/Creatinine Ratio 14.2 8-20 Calcium 8.8 mg/dL 8.6-10.3 Total Protein 6.7 g/dL 6.4-8.9 Albumin 3.5 g/dL 3.2-5.2 Globulin 3.2 g/dL 2-4 Albumin/Globulin Ratio 1.1 1-3 Total Bilirubin 0.40 mg/dL 0.2-1.0 Alkaline Phosphatase 69 U/L 34-104 Alt 12 U/L 7-52 Ast 15 U/L 13-39 Egfr Non- 50.4 >60 Egfr 64.8 >60 37 Laboratory test finding 03/01/2015 Troponin I 0.00 ng/mL <0.03 38 B Type Natriuretic Peptide 59 pg/mL 39 Pthi 02/10/2015 PTH Intact 8.7 pmol/L 1.3-9.3 Calcium (PTH Intact) 8.7 mg/dL 8.6-10.3 Basic Metabolic Panel 02/10/2015 Sodium 132 mmol/L Low 133-145 Potassium 3.9 mmol/L 3.5-5.0 Chloride 102 mmol/L 101-111 Co2 Carbon Dioxide 26 mmol/L 22-32 Anion Gap 4 mmol/L 2-11 Glucose 86 mg/dL 70-100 Blood Urea Nitrogen 14 mg/dL 6-24 Creatinine 1.09 mg/dL High 0.51-0.95 BUN/Creatinine Ratio 12.8 8-20 Calcium 8.7 mg/dL 8.6-10.3 Egfr Non- 52.5 >60 Egfr 67.5 >60 40 Laboratory test finding 02/10/2015 Free T4 0.78 ng/mL 0.61-1.12 Prolactin 15.9 ng/mL 1.0-25.0 Thyroid Peroxidase Antibodies 1.96 IU/mL <9 Calcitonin <5.0 pg/mL 41 Laboratory test finding 01/08/2015 Free T4 1.12 ng/dL 0.75-1.54 Free T3 2.74 pg/mL 2.00-4.90 Metanephrines Plasma 12/20/2014 Plasma Free Normetanephrine 0.89 nmol/L < 0.90 42 Plasma Free Metanephrine <0.20 nmol/L <0.50 42, 43 Laboratory test finding 12/20/2014 T4 16.57 g/dL High 6.09-12.23 42, 44 TSH (Thyroid Stimulating Horm) 2.16 IU/mL 0.34-5.60 42, 45 Lipid Profile (Trig/Chol/HDL) 12/20/2014 Triglycerides 100 mg/dL 42, 46 Cholesterol 204 mg/dL 42, 47 HDL Cholesterol 42.4 mg/dL 42, 48 LDL Cholesterol 142 mg/dL 42, 49 Comp Metabolic Panel 12/20/2014 Sodium 138 mmol/L 133-145 42 Potassium 4.2 mmol/L 3.5-5.0 42 Chloride 105 mmol/L 101-111 42 Co2 Carbon Dioxide 27 mmol/L 22-32 42 Anion Gap 6 mmol/L 2-11 42 Glucose 80 mg/dL 70-100 42 Blood Urea Nitrogen 13 mg/dL 6-24 42 Creatinine 1.01 mg/dL High 0.51-0.95 42 BUN/Creatinine Ratio 12.9 8-20 42 Calcium 9.3 mg/dL 8.6-10.3 42 Total Protein 7.0 g/dL 6.4-8.9 42 Albumin 3.9 g/dL 3.2-5.2 42 Globulin 3.1 g/dL 2-4 42 Albumin/Globulin Ratio 1.3 1-3 42 Total Bilirubin 0.60 mg/dL 0.2-1.0 42 Alkaline Phosphatase 78 U/L 34-104 42 Alt 19 U/L 7-52 42 Ast 20 U/L 13-39 42 Egfr Non- 57.3 >60 42 Egfr 73.7 >60 42, 50 CBC No Diff 12/20/2014 White Blood Count 6.1 10^3/uL 4.8-10.8 42 Red Blood Count 4.57 10^6/uL 4.0-5.4 42 Hemoglobin 14.1 g/dL 12.0-16.0 42 Hematocrit 42 % 35-47 42 Mean Corpuscular Volume 92 fL 80-97 42 Mean Corpuscular Hemoglobin 31 pg 27-31 42 Mean Corpuscular HGB Conc 34 g/dL 31-36 42 Red Cell Distribution Width 13 % 10.5-15 42 Platelet Count 179 10^3/uL 150-450 42 Mean Platelet Volume 9 um3 7.4-10.4 42 1 Because ethnic data is not always [...] 5 Kidney failure <15 (or dialysis) 3 [id number] 4 Warning: A positive result is not useful for establishing a diagnosis of syphilis. In most situations, such a result may reflect a prior treated infection; a negative result can exclude a diagnosis of syphilis except for incubating or early primary disease. 5 [id number] 6 SEE RESULT BELOW Name: ROSA MEHTA : [address]: Bing Dickerson CONTACT PERSON Acct: [id number] Unit: [id number] AGE: 57 Location: [facility] Re11/14/17 SEX: F Status: REG REF SPEC: [id number] MACY: 11/14/[address]: Bing Dickerson NP REQ: [id number] RECD: 11/15/17 STATUS: COMP _ SOURCE: URINE SPDES: ORDERED: Urine Culture COMMENTS: [id number] Urine Source: Random Procedure Result Reported Site Urine Culture Final 11/17/17- 0725 ML Organism 1 ESCHERICHIA COLI Jackson Count >100,000 (Many) CFU/ML Organism 2 NORMAL HUMAIRA Jackson Count 1-10,000 (Few) CFU/ML 1. ESCHERICHIA COLI M.I.C. RX --------- ------ Ampicillin <=2 S Cefazolin <=4 S Cefepime <=1 S Ceftriaxone <=1 S Ciprofloxacin <=0.25 S Gentamicin <=1 S Levofloxacin <=0.12 S Meropenem <=0.25 S Nitrofurantoin <=16 S Tetracycline <=1 S Pipercillin/Tazobactam <=4 S Trimethoprim/Sulfamethoxazole <=20 S Amoxicillin/Clavulanic Acid <=2 S Aztreonam <=1 S CONTINUED ON NEXT PAGE * ML=Testing performed at Main Lab DEPARTMENT OF PATHOLOGY, [address] [place] [address] Sebastian Villagran M.D. Director [facility] # [id number] Patient: ROSA MEHTA [id number] (Continued) Specimen: [id number] Collected: 11/14/17 Received: 11/15/17 (Continued) Procedure Result Reported Site Urine Culture Final (continued) Contact the Microbiology Department for any additional antibiotic reporting. * ML - MAIN LAB ([facility]) . END OF REPORT * ML=Testing performed at Main Lab DEPARTMENT OF PATHOLOGY, [address] [place] [address] Sebastian Villagran M.D. Director [facility] # [id number] Drilling Engineering Manager: [id number] BLOOD IN STOOL 9 SEE RESULT BELOW Name: ROSA MEHTA : [address]: Dyllan Mora MD Acct: [id number] Unit: [id number] AGE: 56 Location: ED Re11/29/16 SEX: F Status: REG ER SPEC: [id number] MACY: 11/29/[address]: Dyllan Mora MD REQ: [id number] RECD: 11/29/16 STATUS: MANA SOUTH DR: Napoleon Gregory MD _ SOURCE: STOOL SPDES: ORDERED: Hemoccult Procedure Result Reported Site Stool Occult Blood Final 11/29/161106 ML Stool Occult Blood Negative * ML - MAIN LAB ([facility]) . END OF REPORT * ML=Testing performed at Main Lab DEPARTMENT OF PATHOLOGY, [address] [place] [address] Sebastian Villagran M.D. Director [facility] # [id number] 10 Because ethnic data is not always readily [...] 15-29 5 Kidney failure <15 (or dialysis) 11 Because ethnic data is not always readily [...] 15-29 5 Kidney failure <15 (or dialysis) 12 Acute inflammation: >10.00 13 NEGATIVE FOR INTRAEPITHELIAL LESION AND MALIGNANCY. 14 Satisfactory for evaluation. No endocervical cells are present. This is consistent with a history of hysterectomy. 15 M25.572 Z12.4 16 Vishnu Philip, Ob/Gyn Doctor (ASCP) 17 The Pap smear is a screening test designed to aid in the detection of premalignant and malignant conditions of the uterine cervix. It is not a diagnostic procedure and should not be used as the sole means of detecting cervical cancer. Both false-positive and false-negative reports do occur. 18 This liquid based ThinPrep(R) pap test was screened with the use of an image guided system. 19 The HPV DNA reflex criteria were not met with this specimen result therefore, no HPV testing was performed. 20 SPRAIN OF UNSPECIFIED LIGAMENT OF LEFT ANKLE, SEQU 21 SEE RESULTS BELOW [id number] SEMITEN TRANSFUSED 09/28/15 0814 22 Acute inflammation: >10.00 23 Acute inflammation: >10.00 24 Because ethnic data is not always readily [...] 15-29 5 Kidney failure <15 (or dialysis) 25 Because ethnic data is not always readily [...] 15-29 5 Kidney failure <15 (or dialysis) 26 SEE RESULT BELOW Name: ROSA MEHTA : [address]: Elsi Kam MD Acct: [id number] Unit: [id number] AGE: 55 Location: ED Re07/20/15 SEX: F Status: DEP ER SPEC: [id number] MACY: 07/21/15 [facility] DR: Shayy MCCLURE REQ: [id number] RECD: 07/21/15 STATUS: MANA SOUTH DR: Elsi Gregory MD _ SOURCE: URINE SPDESC: ORDERED: Urine Culture Procedure Result Verified Site Urine Culture Final 07/23/15- 1031 ML No Growth Day 2 (<1,000 CFU/mL) * ML - MAIN LAB ([facility]) . END OF REPORT * ML=Testing performed at Main Lab DEPARTMENT OF PATHOLOGY, [address] [place] [address] Sebastian Villagran M.D. Director [facility]ISE # [id number] 27 SEE RESULT BELOW Name: ROSA MEHTA : [address]: Georgie Covington Acct: [id number] Unit: [id number] AGE: 55 Location: [facility] Re07/19/15 SEX: F Status: DEP ER SPEC: [id number] MACY: 07/19/15-1325 [facility] DR: Wilfredo Lawrence MD REQ: [id number] RECD: 07/20/15-114 STATUS: MANA SOUTH DR: [facility] Napoleon Gregory MD _ SOURCE: URINE SPDESC: ORDERED: Urine Culture Procedure Result Verified Site Urine Culture Final 07/22/15- 1020 ML Organism 1 STREP GROUP B Jackson Count >100,000 (Many) CFU/ML Susceptibility testing of penicillins and other B-lactams approved by FDA for treatment of Streptococcus pyogenes (Group A Strep) and Streptococcus agalactiae (Group B Strep) is not necessary for clinical purposes and need not be done routinely, since as with vancomycin, resistant strains have not been recognized. (CLSI K970-N53;p.66) Positive isolates will be saved for one week. Please call the Microbiology Laboratory if further susceptibility testing is needed. * ML - MAIN LAB ([facility]) . END OF REPORT * ML=Testing performed at Main Lab DEPARTMENT OF PATHOLOGY, [address] [place] [address] Sebastian Villagran M.D. Director [facility] # [id number] 28 SEE RESULT BELOW Name: ROSA MEHTA : [address]: Genie Harper MD Acct: [id number] Unit: [id number] AGE: 54 Location: [facility] Re06/05/15 SEX: F Status: DEP ER SPEC: [id number] MACY: 06/05/15-[address] [facility] DR: Genie Harper MD REQ: [id number] RECD: 06/05/15-1612 STATUS: MANA SOUTH DR: [facility] Napoleon Gregory MD _ SOURCE: URINE SPDESC: ORDERED: Urine Culture Procedure Result Verified Site Urine Culture Final 06/07/15- 0842 ML Organism 1 KLEBSIELLA PNEUMONIAE Jackson Count >100,000 (Many) CFU/ML 1. KLEBSIELLA PNEUMONIAE M.I.C. RX --------- ------ Ampicillin >=32 R Cefazolin <=4 S Cefepime <=1 S Ceftriaxone <=1 S Ciprofloxacin <=0.25 S Gentamicin <=1 S Levofloxacin <=0.12 S Meropenem <=0.25 S Nitrofurantoin 32 S Tetracycline <=1 S Pipercillin/Tazobactam <=4 S Trimethoprim/Sulfamethoxazole <=20 S Amoxicillin/Clavulanic Acid <=2 S Aztreonam <=1 S Contact the Microbiology Department for any additional antibiotic reporting. * ML - [facility] ([facility]) . END OF REPORT * ML=Testing performed at Main Lab DEPARTMENT OF PATHOLOGY, [address] [place] [address] Sebastian Villagran M.D. Director [facility] # [id number] 29 RESULTS VERIFIED BY REPEAT ANALYSIS 30 31 Test Performed by: [place] [address] Real Estate Broker Associate: Alin Damico II, M.D., Ph.D. 32 REFERENCE VALUE 30-180 (Normotensive) <400 (Hypertensive) 33 REFERENCE VALUE 128-484 (Normotensive) <900 (Hypertensive) 34 REFERENCE VALUE 164-588 (Normotensive) <1300 (Hypertensive) 35 Test Performed by: [place] [address] Real Estate Broker Associate: Alin Damico II, M.D., Ph.D. 36 Please note: The following may produce a false positive D Dimer test: - Rheumatoid factor greater than 60 IU/ml - Plasma hemoglobin greater than 0.05 gm/dl - Bilirubin greater than 50 mg/dl - Lipids greater than 1000 mg/dl - FDP greater than 20 ug/ml 37 Because ethnic data is not always readily [...] 15-29 5 Kidney failure <15 (or dialysis) 38 Reference Range and Interpretation: TnI (ng/mL) Interpretation Less Than 0.03 ng/mL Not supportive of diagnosis of NC 0.03 - 0.50 ng/mL Indeterminate: suggest serial studies if clinically indicated. Greater than 0.5 ng/mL Consistent with diagnosis of NC 39 >100 to <200 pg/mL: likely compensated congestive heart failure (CHF) 200 to 400 pg/mL: likely moderate CHF >400 pg/mL: likely moderate to severe CHF [place] [facility] 40 Because ethnic data is not always readily [...] 15-29 5 Kidney failure <15 (or dialysis) 41 REFERENCE VALUE Basal: <8 Peak Calcium Infusion: <=90 ADDITIONAL INFORMATION The testing method is an immunoenzymatic assay manufactured by [employer] and performed on the [employer] 2000. Values obtained with different assay methods or kits may be different and cannot be used interchangeably. Test results cannot be interpreted as absolute evidence for the presence or absence of malignant disease. Test Performed by: [place] [address] Real Estate Broker Associate: Alin Damico II, M.D., Ph.D. 42 FASTING 43 Test Performed by: [place] [address] Real Estate Broker Associate: Alin Damico II, M.D., Ph.D. 44 FASTING 45 FASTING 46 Desirable <150 Borderline high 150-199 High 200-499 Very High >500 47 Desirable <200 Borderline high 200-239 High >239 48 Low <40 Desirable: 40-60 High: >60 49 Desirable <100 Near Optimal 100-129 Borderline high 130-159 High 160-189 Very High >189 50 Because ethnic data is not always readily [...] 15-29 5 Kidney failure <15 (or dialysis) Procedures Date CPT Code Description Status 12/11/2017 63016 Electrocardiogram Complete Completed 11/30/2017 Mammogram Completed 08/23/2017 Mammogram Completed 07/27/2017 Mammogram Completed 10/17/2016 Mammogram Completed 06/20/2016 Mammogram Completed 03/08/2016 75669 Blood Pressure Review W/Report Completed 03/08/2016 81499 Blood Pressure Monitoring Completed 2015 Mammogram Completed 06/02/2015 Colonoscopy Completed 03/05/2015 58876 Electrocardiogram Complete Completed Encounters Type Date Location Provider CPT E/M Dx Office Visit 12/11/2017 1:00p [facility] Napoleon Gregory M.D. 86182 I10 R10.30 N95.1 Z00.00 Z11.4 Z11.3 Office Visit 11/14/2017 4:15p Main Office GLORIA Downing 09704 R05 R30.0 Office Visit 08/21/2017 9:00a Main Office Jemima Pickens, FLIGHT ATTENDANT/INFLIGHT SUPERVISOR 28582 H66.91 Office Visit 07/06/2017 3:00p Main Office GLORIA Downing 74706 N64.4 N95.1 Office Visit 05/29/2017 10:30a Main Office GLORIA Alvarado 77115 N39.0 Office Visit 01/30/2017 10:00a [facility] Office Napoleon Gregory M.D. 49474 S06.0x0D R10.30 Office Visit 09/24/2016 9:00a Main Office GLORIA Downing 18454 N64.4 Office Visit 05/24/2016 8:20a Main Office Napoleon Gregory M.D. 34058 I10 Z12.11 Office Visit 02/24/2016 11:00a [facility] GLORIA Downing 98020 I10 Office Visit 12/17/2015 9:00a Main Office Napoleon Gregory M.D. 83781 I10 Office Visit 11/20/2015 10:00a Main Office Napoleon Gregory M.D. 80056 Z11.1 Office Visit 11/18/2015 8:30a Main Office Bing Dickerson, [facility] 58264 M25.572 I10 N95.1 Z01.419 Z12.39 Z11.1 Office Visit 09/04/2015 9:15a Main Office Bing Dickerson, [facility] 07386 I10 N20.2 N95.1 Office Visit 08/03/2015 10:00a [facility] Bing Dickerson, [facility] 74373 N39.0 N20.2 Office Visit 06/11/2015 9:00a Main Office Napoleon Gregory M.D. 65120 401.1 V06.1 v06.5 E89.41 Office Visit 03/05/2015 8:00a Main Office Napoleon Gregory M.D. 53298 786.59 Office Visit 12/12/2014 9:00a Main Office Napoleon Gregory M.D. 33427 V74.1 Office Visit 12/09/2014 9:40a Main Office Napoleon Gregory M.D. 39819 v74.1 401.1 784.0 599.0 Plan of Care Future Appointment(s):09/03/2018 3:00 pm - Napoleon Gregory M.D. at [facility]06/22/2018 - Napoleon Gregory M.D.F07.81 Postconcussional syndromeComments:she has follow up with Dr Benz this fall, continue present medication, to have surgery in near future with Dr Peralta Medication: NoteComments:Continue out of work return in 4 months
--- OUTSIDE RECORDS SUMMARY | 2018-07-13 16:09 | XMS REPORT ---
:1960 External Reference #:[id number] Author Organization [facility] Address [address] [place] [address] [place] [address] Phone [phone] Care Team Providers Name Role Phone Napoleon Gregory MD Primary Care Physician Unavailable Payers Type Date Identification Numbers Payment Provider Subscriber Commercial Policy Number: [id number] BS Janis Mehta PayID: [id number] [address] [address] [place] [address] Workers Effective: Policy Number: Tripp Mehta Compensation 2016 [id number] Insurance Onset: 2016 PayID: [id number] [address] [place] [address] Problems Date Description Provider Status Onset: 05/25/2015 [...] Date Description Comments Lives With Son 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 pain [place]de, RN RESIDENTIAL Premarin / Active Tablets 0.9mg 1 by [...] ER 2018 - 24HR s mouth at [facility], 11/28/ bedtime M.D. 2018 [place] 06/06/ [...] needed Vital Signs Date Vital Result Comment 06/20/2018 Height 65 inches 5'5" Weight 213.00 [...] 5 Kidney failure <15 (or dialysis) 2 [id number] 3 SEE RESULT BELOW Name: ROSA MEHTA : [address]: Leila Darnell MD Acct: [id number] Unit: [id number] AGE: 57 Location: [facility] Re08/31/17 SEX: F Status: REG REF SPEC: [id number] MACY: 08/31/17-[address]: Joey Vargas MD REQ: [id number] RECD: 08/31/17-160 STATUS: LYNETTE SOUTH DR: Leila Darnell MD _ ORDERED: LEVEL 4 COMMENTS: [id number] FINAL DIAGNOSIS Breast, right, 12:00, 2 cm [...] performed at Main Lab DEPARTMENT OF PATHOLOGY, [address] [place] [address] Sebastian Villagran M.D. Director [facility] # [id number] It is recognized that currently available [...] LEFT ANKLE, SEQU 7 SEE RESULTS BELOW [id number] SEMITEN TRANSFUSED 09/28/15 0814 Procedures Date CPT Code Description Status 11/30/2017 Mammogram Completed 07/27/2017 Mammogram Completed 10/17/2016 Mammogram Completed 10/09/2015 53934 Short Leg Cast Completed 09/28/2015 63989 Repair Collateral Ligament Ankle, Secondary Completed 09/28/2015 46468 Repair Collateral Ligament Ankle, Secondary Completed 2015 Bone Mineral Density Test Completed Encounters Type Date Location Provider CPT E/M Dx Office Visit 06/05/2018 [place] [address] R10.32 9:45a Of [facility] Office Visit 06/01/2018 [place] [address] S93.505A 10:30a Of Brooke G57.62 Office Visit 05/31/2018 11:30a [facility] Of Vishnu Banks 01280 M20.42 CJanis Echavarria Office Visit 04/24/2018 10:00a [facility] 38903 M79.672 CJanis Echavarria Office Visit 04/10/2018 8:30a [facility] 43467 G57.92 CJanis Echavarria Office Visit 04/10/2018 10:00a [facility] Leila Darnell 18018 R10.32 Ivan TANG Office Visit 02/21/2018 9:00a [facility] Rody Benz 36340 R51 Services Of Ivan Echavarria Office Visit 12/05/2017 10:45a [facility] Leila Danrell 33164 N64.4 [facility] Office Visit 11/29/2017 9:45a [facility] Rody Benz 73871 R51 Services Of Ivan Echavarria Office Visit 11/22/2017 11:30a [facility] Rody Benz 16062 R51 Services Of Ivan Echavarria F07.81 Office Visit 11/15/2017 9:30a [facility] [place] [address] N64.4 Ivan R10.30 Office Visit 08/30/2017 9:00a [facility] Rody Benz M.D. 67041 R51 Services Of Tooth Cutter R51 F07.81 F07.81 Office Visit 08/29/2017 9:00a [facility] [place] [address] R92.8 Ivan N64.4 Office Visit 10/28/2016 3:15p [facility] Vishnu Banks 06872 M25.372 C.MNeo Echavarria Office Visit 06/06/2016 4:20p [facility] D. 84470 Z20.6 Infectious Diseases Jericho Lopez Z79.899 Office Visit 02/16/2016 2:10p [facility]nu Banks, 10914 S93.402D Of C.MNeo Echavarria Office Visit 09/04/2015 10:10a [facility] Vishnu Banks, 27602 S93.402S Of C.MNeo Echavarria M25.572 Office Visit 08/07/2015 1:00p [facility] Of Fabian Blanco, 46596 S93.402S Tooth Cutter AT Azar Echavarria M76.72 M25.572 Office Visit 06/23/2015 8:45a [facility] Fabian Blanco, 20462 845.00 Tooth Cutter AT Azar Echavarria 719.47 Office Visit 05/25/2015 8:30a [facility] Fabian Blanco, 01281 845.00 C.M.Frederick Echavarria 719.45 719.47 Office Visit 01/14/2015 1:15p [facility] Of Jadyn Chambers, 61488 845.00 C.M.A. RPA-C 719.45 Plan of Care Future Appointment(s):07/06/2018 2:00 pm - REN Silvestre at [facility]06/29/2018 8:00 am - Leila Darnell MD at [facility]07/18/2018 1:15 pm - Roc Barry MD at [facility].A.08/24/2018 10:15 am - Rody Benz M.D. at [facility]06/20/2018 - Rocío Capps, NPR10.32 Left lower quadrant painFollow up:POSTOP 07/06Z01.818 Encounter for other preprocedural examination
[2018-07-13 19:39] LABS: ABS Basophils 0 10^3/ul (0-0.2); ABS Eosinophils 0.3 10^3/ul (0-0.6); ABS Lymphocytes 1.7 10^3/ul (1.0-4.8); ABS Monocytes 0.3 10^3/ul (0-0.8); ABS Neutrophils 2.5 10^3/ul (1.5-7.7); ABS Nucleated RBC 0 10^3/ul; Eosinophil % 6.9 % (0-6); Hematocrit 36 % (35-47); Hemoglobin 12.6 g/dl (12.0-16.0); Lymphocyte % 34.4 % (25-47); Mean Corpuscular HGB Conc 35 g/dl (31-36); Mean Corpuscular Hemoglobin 32 pg (27-31); Mean Corpuscular Volume 91 fL (80-97); Mean Platelet Volume 8.2 um3 (7.4-10.4); Nucleated Red Blood Cells % 0; Platelet Count 206 10^3/ul (150-450); Red Blood Count 3.99 10^6/ul (4.00-5.40); Red Cell Distribution Width 13 % (10.5-15); White Blood Count 4.8 10^3/ul (3.5-10.8)
[2018-07-13 19:54] LABS: EGFR Non-African American 69.9 (>60)
[2018-07-13 20:31] LABS: Urine Appearance Clear; Urine Blood 1+ (Negative); Urine Color Straw; Urine Ketones Negative (Negative); Urine Protein Negative (Negative); Urine Red Blood Cell Trace(0-2/hpf) (Absent); Urine Specific Gravity 1.003 (1.010-1.030); Urine Urobilinogen Negative (Negative); Urine White Blood Cell Trace(0-5/hpf) (Absent)
--- NOTE | 2018-07-13 21:09 | ED ---
Complex/Multi-Sys Presentation - HPI Summary HPI Summary: This is a 58-year-old woman who was recommended by her surgeon to come to the ED for evaluation of a change in the drainage from her Avelino-Hutson drain. That had to be inserted due to Conditions from a recent laparoscopy converted to a laparotomy for lysis of adhesions. Per the patient, the bladder was inadvertently punctured, so she is being treated conservatively with a Juarez catheter for bladder decompression as well as a Avelino-Hutson drain in the wound. She called her surgeon today because she noticed change in the drainage with a foul smell to it as well as a different color and cloudiness. At present it is a maroon color. She has not had any tenderness at the insertion site, no abdominal pain, no change in her Juarez output, no fever. - History Of Current Complaint Chief Complaint: EDGeneral Time Seen by Provider: 07/13/18 19:06 - Allergies/Home Medications Allergies/Adverse Reactions: Allergies Allergy/AdvReac Type Severity Reaction Status Date / Time morphine Allergy Severe Anaphylatic Verified 07/13/18 18:03 Shock Penicillins Allergy Severe Anaphylatic Verified 07/13/18 18:03 Shock Sulfa (Sulfonamide Allergy Severe Headache Verified 07/13/18 18:03 Antibiotics) albuterol Allergy Headache Verified 07/13/18 18:03 codeine Allergy Vomiting Verified 07/13/18 18:03 levofloxacin [From Levaquin] Allergy See Comment Verified 07/13/18 18:03 nitrofurantoin Allergy Dizziness Verified 07/13/18 18:03 [From Macrobid] sulfate Allergy Severe Anaphylatic Uncoded 07/13/18 18:03 Shock sulfites Allergy Severe Hives Uncoded 07/13/18 18:03 PMH/Surg Hx/FS Hx/Imm Hx Endocrine/Hematology History: Reports: Hx Anemia - age 6 Denies: Hx Diabetes, Hx Thyroid Disease Cardiovascular History: Reports: Hx Hypertension - ON MEDS-states well controlled Denies: Hx Pacemaker/ICD, Other Cardiovascular Problems/Disorders Respiratory History: Reports: Other Respiratory Problems/Disorders - History of pneumonia 2015 Denies: Hx Asthma, Hx Chronic Obstructive Pulmonary Disease (COPD) GI History: Reports: Other GI Disorders - Appendicitis-Appendectomy, Cholecystectomy Denies: Hx Ulcer History: Reports: Hx Kidney Infection - Pyelonephritis x3, last episode 2015 , Hx Kidney Stones - 2015, Other Problems/Disorders - History of cystitis multiple times Denies: Hx Dialysis, Hx Renal Disease Musculoskeletal History: Reports: Hx Arthritis, Other Musculoskeletal History - 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 [address], Left ankle fracture repair Sensory History: Reports: Hx Contacts or Glasses - Glasses Denies: Hx Hearing Aid Opthamlomology History: Reports: Hx Contacts or Glasses - Glasses Neurological History: Reports: Hx Headaches - 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 Cholecystectomy 2011 [place]. Hernia repair 2007 [place]. C-sections 1987 & 1989, Tubal ligation 1989. Laparoscopy for adhesions 2010. Hysterectomy Right Oophorectomy. Left oophorectomy and large tumor removed- [place]. Left ankle reconst 2014-[facility] [place] Hx Anesthesia Reactions: Yes - Had some urinary retention after cholecystectomy - Immunization History Date of Tetanus Vaccine: utd Date of Influenza Vaccine: 2015 Infectious Disease History: No Infectious Disease History: Denies: Hx Clostridium Difficile, Hx Hepatitis, Hx Human Immunodeficiency Virus (HIV), Hx of Known/Suspected MRSA, Hx Shingles, Hx Tuberculosis, Hx Known/ Suspected VRE, Hx Known/Suspected VRSA, History Other Infectious Disease, Traveled Outside the in Last 30 Days - Family History Known Family History: Positive: Hypertension, Other - pos: breast CA: grandmother; father allergic to novacaine - Social History Alcohol Use: None Hx Substance Use: No Substance Use Type: Reports: None Hx Tobacco Use: No Smoking Status (MU): Never Smoked Tobacco Have You Smoked in the Last Year: No Review of Systems Negative: Fever, Chills Eyes: Negative ENT: Negative Cardiovascular: Negative Respiratory: Negative Gastrointestinal: Negative Negative: Abdominal Pain, Vomiting Positive: no symptoms reported, other - Juarez catheter draining well All Other Systems Reviewed And Are Negative: Yes Physical Exam - Summary Physical Exam Summary: General: This is a well-developed, well- nourished white female lying on the stretcher in no apparent distress. The patient does not appear ill or toxic. HEENT:Extraocular movements are intact. Conjunctiva are normal without pallor. Pharynx is clear without exudate or swelling. Dentition is unremarkable. There is no sign of head trauma. Neck: Supple, no adenopathy noted. Lungs: Lungs are clear to auscultation. There are no signs of respiratory distress. Coronary: Peripheral perfusion is good. Heart sounds are regular, a normal S1 and S2 were auscultated. There is no gallop rhythm, nor any pathological sounded murmurs. Abdomen: The abdomen appears normal and is nondistended. Normoactive bowel sounds are present. On palpation, there is no significant tenderness, nor any guarding or rebound. There is no hepatosplenomegaly, nor any masses. The SHARMIN site appears uninfected. Genitourinary: Deferred, Juarez catheter in place and draining clear yellow urine Back: Good range of motion is observed. There are no surface abnormalities nor any scoliosis. Extremities: Good range of motion was observed in all 4 extremities. There is no sign of any trauma to the extremities. Neurologic: The patient is awake and alert, speech is fluent in conversation is appropriate. There are no focal motor abnormalities. Cranial nerves are grossly intact. Deep tendon reflexes are 2+ and symmetric. There is no ataxia observed. Psychiatric. The patients affect is felt to be normal and appropriate. There is no sign of any hallucinations or delusions, or any other signs of psychosis. Vital Signs On Initial Exam: Initial Vitals Temp Pulse Resp BP Pulse Ox 36.9 C 81 18 140/91 94 07/13/18 15:50 07/13/18 15:50 07/13/18 15:50 07/13/18 15:50 07/13/18 15:50 Diagnostics - Vital Signs Vital Signs Temp Pulse Resp BP Pulse Ox 07/13/18 19:29 58 100 07/13/18 19:27 58 138/88 100 07/13/18 18:01 36.3 C 69 16 159/99 99 07/13/18 15:50 36.9 C 81 18 140/91 94 - Laboratory Lab Results: Lab Results 07/13/18 07/13/18 07/13/18 Range/Units 19:20 19:20 19:53 WBC 4.8 (3.5-10.8) 10^3/ul RBC 3.99 L (4.00-5.40) 10^6/ul Hgb 12.6 (12.0-16.0) g/dl Hct 36 (35-47) % MCV 91 (80-97) fL MCH 32 H (27-31) pg MCHC 35 (31-36) g/dl RDW 13 (10.5-15) % Plt Count 206 (150-450) 10^3/ul MPV 8.2 (7.4-10.4) um3 Neut % (Auto) 51.8 (38-83) % Lymph % (Auto) 34.4 (25-47) % [place] % (Auto) 6.0 (0-7) % Eos % (Auto) 6.9 H (0-6) % Baso % (Auto) 0.9 (0-2) % Absolute Neuts (auto) 2.5 (1.5-7.7) 10^3/ul Absolute Lymphs (auto) 1.7 (1.0-4.8) 10^3/ul Absolute Monos (auto) 0.3 (0-0.8) 10^3/ul Absolute Eos (auto) 0.3 (0-0.6) 10^3/ul Absolute Basos (auto) 0 (0-0.2) 10^3/ul Absolute Nucleated RBC 0 10^3/ul Nucleated RBC % 0 Sodium 134 L (135-145) mmol/L Potassium 3.6 (3.5-5.0) mmol/L Chloride 102 (101-111) mmol/L Carbon Dioxide 27 (22-32) mmol/L Anion Gap 5 (2-11) mmol/L BUN 12 (6-24) mg/dL Creatinine 0.84 (0.51-0.95) mg/dL Est GFR ( Amer) 84.6 (>60) Est GFR (Non-Af Amer) 69.9 (>60) BUN/Creatinine Ratio 14.3 (8-20) Glucose 106 H (70-100) mg/dL Lactic Acid 0.7 (0.5-2.0) mmol/L Calcium 9.1 (8.6-10.3) mg/dL Urine Color Urine Appearance Urine pH (5-9) Ur Specific [place] (1.010-1.030) Urine Protein (Negative) Urine Ketones (Negative) Urine Blood (Negative) Urine Nitrate (Negative) Urine Bilirubin (Negative) Urine Urobilinogen (Negative) Ur Leukocyte Esterase (Negative) Urine WBC (Auto) (Absent) Urine RBC (Auto) (Absent) Urine Bacteria (Absent) Ur Random Creatinine mg/dL Urine Glucose (Negative) 07/13/18 07/13/18 Range/Units 20:07 20:07 WBC (3.5-10.8) 10^3/ul RBC (4.00-5.40) 10^6/ul Hgb (12.0-16.0) g/dl Hct (35-47) % MCV (80-97) fL MCH (27-31) pg MCHC (31-36) g/dl RDW (10.5-15) % Plt Count (150-450) 10^3/ul MPV (7.4-10.4) um3 Neut % (Auto) (38-83) % Lymph % (Auto) (25-47) % [place] % (Auto) (0-7) % Eos % (Auto) (0-6) % Baso % (Auto) (0-2) % Absolute Neuts (auto) (1.5-7.7) 10^3/ul Absolute Lymphs (auto) (1.0-4.8) 10^3/ul Absolute Monos (auto) (0-0.8) 10^3/ul Absolute Eos (auto) (0-0.6) 10^3/ul Absolute Basos (auto) (0-0.2) 10^3/ul Absolute Nucleated RBC 10^3/ul Nucleated RBC % Sodium (135-145) mmol/L Potassium (3.5-5.0) mmol/L Chloride (101-111) mmol/L Carbon Dioxide (22-32) mmol/L Anion Gap (2-11) mmol/L BUN (6-24) mg/dL Creatinine (0.51-0.95) mg/dL Est GFR ( Amer) (>60) Est GFR (Non-Af Amer) (>60) BUN/Creatinine Ratio (8-20) Glucose (70-100) mg/dL Lactic Acid (0.5-2.0) mmol/L Calcium (8.6-10.3) mg/dL Urine Color Straw Urine Appearance Clear Urine pH 7.0 (5-9) Ur Specific [place] 1.003 L (1.010-1.030) Urine Protein Negative (Negative) Urine Ketones Negative (Negative) Urine Blood 1+ A (Negative) Urine Nitrate Negative (Negative) Urine Bilirubin Negative (Negative) Urine Urobilinogen Negative (Negative) Ur Leukocyte Esterase Negative (Negative) Urine WBC (Auto) Trace(0-5/hpf) (Absent) Urine RBC (Auto) Trace(0-2/hpf) (Absent) Urine Bacteria 1+ A (Absent) Ur Random Creatinine 27.40 mg/dL Urine Glucose Negative (Negative) Result Diagrams: 07/13/18 19:20 07/13/18 19:20 Lab Statement: Any lab studies that have been ordered have been reviewed, and results considered in the medical decision making process. Complex Multi-Symp Course/Dx Course Of Treatment: This is a 58-year-old woman coming in with a change in her drainage from her Avelino-Hutson. There are no signs of infection. I spoke to the covering surgeon who tells me that as long as her white count is normal and there is no fever and the abdomen exam is normal there would not recommend any by mouth change in her care, particularly no antibiotics are required at this time. - Diagnoses Provider Diagnoses: Bleeding from Avelino-Hutson drain - Physician Notifications Discussed Care Of Patient With: Jeff Mosley Time Discussed With Above Provider: 20:15 Discharge - Sign-Out/Discharge Documenting (check all that apply): Patient Departure - Discharge Plan Condition: Good Disposition: HOME Patient Education Materials: Avelino-Hutson Drain Care (ED) Referrals: Leila Darnell MD [Medical Doctor] - Additional Instructions: You do not appear to be showing any signs of significant infection from the drain at present. Continue the usual care, and contact Dr. Darnell's office for followup tomorrow. - Billing Disposition and Condition Condition: GOOD Disposition: Home - Attestation Statements Document Initiated by Scribe: No
[2018-07-13 22:01] VITALS: BP 138/79
== END 2018-07-13 22:00 | disposition home or self-care (01) ==
LOC: ED 15:20
DX: Z48.03 Encounter for change or removal of drains (principal); Z88.0 Allergy status to penicillin; I10 Essential (primary) hypertension
CPT/HCPCS: 36415; 80048; 81003; 81015; 82570; 83605; 85025; 87086; 99283

== ENCOUNTER 2018-07-27 12:33 | Emergency (ER) | payer BC, OTHER ==
--- OUTSIDE RECORDS SUMMARY | 2018-07-27 13:01 | XMS REPORT ---
:1960 External Reference #:[id number] Author Organization [facility] Address [address] [place] [address] [place] [address] Phone [phone] Care Team Providers Name Role Phone Napoleon Gregory MD Primary Care Physician Unavailable Payers Type Date Identification Numbers Payment Provider Subscriber Commercial Policy Number: [id number] BS Janis Rangel PayID: [id number] [address] [address] [place] [address] Workers Effective: Policy Number: Tripp Rangel Compensation 2016 [id number] Insurance Onset: 2016 PayID: [id number] [id number] [place] [address] Problems Date Description Provider Status Onset: 05/25/2015 [...] Date Description Comments Lives With Son 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 pain [place], TRANSPLANTER Premarin / Active Tablets 0.9mg 1 by [...] ER 2018 - 24HR s mouth at [facility], 11/28/ bedtime M.D. 2018 Truvada 06/06/ [...] 2016 Indomethacin / Hx Capsules 50mg Unknown 0000 - 2016 Fioricet / Hx Capsules 50-300-40 1 by Unknown 0000 - mg mouth 08/29/ twice a 2017 day as needed headache max 2 days/wk Tramadol HCL / Hx Tablets 50mg 1-2 Unknown 0000 - tablets 08/29/ every 6 2017 hours as needed Vital Signs Date Vital Result Comment 07/17/2018 Heart Rate 74 /min Respiratory Rate 16 /min Body Temperature 98.2 F 07/10/2018 Heart Rate 74 /min Respiratory Rate [...] 5 Kidney failure <15 (or dialysis) 3 [id number] 4 SEE RESULT BELOW Name: TYSONROSA ROSALES : [address]: Leila Darnell MD Acct: [id number] Unit: [id number] AGE: 57 Location: [facility] Re08/31/17 SEX: F Status: REG REF SPEC: [id number] MACY: 08/31/17-1236 [facility] DR: Joey Vargas MD REQ: [id number] RECD: 08/31/17160 STATUS: LYNETTE SOUTH DR: Leila Darnell MD _ ORDERED: LEVEL 4 COMMENTS: [id number] FINAL DIAGNOSIS Breast, right, 12:00, 2 cm [...] performed at Main Lab DEPARTMENT OF PATHOLOGY, [address] [place] [address] Sebastian Villagran M.D. Director [facility] # [id number] It is recognized that currently available [...] LEFT ANKLE, SEQU 8 SEE RESULTS BELOW [id number] SEMITEN TRANSFUSED 09/28/15 0814 Procedures Date CPT Code Description Status 06/29/2018 61161 Laparoscopy Surgical Enterolysis Completed 06/29/2018 46925 Laparoscopy Surgical Enterolysis Completed 11/30/2017 Mammogram Completed 07/27/2017 Mammogram Completed 10/17/2016 Mammogram Completed 10/09/2015 41195 Short Leg Cast Completed 09/28/2015 99488 Repair Collateral Ligament Ankle, Secondary Completed 09/28/2015 06483 Repair Collateral Ligament Ankle, Secondary Completed 2015 Bone Mineral Density Test Completed Encounters Type Date Location Provider CPT E/M Dx Office Visit 06/05/2018 [place] [address] R10.32 9:45a Of Ivan Office Visit 06/01/2018 [place] [address] S93.505A 10:30a Of Brooke G57.62 Office Visit 05/31/2018 11:30a [facility] 59857 M20.42 CJanis Echavarria Office Visit 04/24/2018 10:00a [facility] 65263 M79.672 Brooke Echavarria Office Visit 04/10/2018 8:30a [facility] 78408 G57.92 CJanis Echavarria Office Visit 04/10/2018 10:00a [facility] Leila Darnell, 45221 R10.32 Ivan TANG Office Visit 02/21/2018 9:00a [facility] Rody Benz 85553 R51 Services Of Ivan Echavarria Office Visit 12/05/2017 10:45a [facility] Leila Darnell 66788 N64.4 Ivan TANG Office Visit 11/29/2017 9:45a [facility] Terence Benz 68797 R51 Services Of Ivan Echavarria Office Visit 11/22/2017 11:30a [facility] Rody Benz 47118 R51 Services Of Iavn Echavarria F07.81 Office Visit 11/15/2017 9:30a [facility] [place] [address] N64.4 [facility] R10.30 Office Visit 08/30/2017 9:00a [facility] Rody Benz M.D. 01447 R51 Services Of [facility] R51 F07.81 F07.81 Office Visit 08/29/2017 9:00a [facility] [place] [address] R92.8 Med Spec N64.4 Office Visit 10/28/2016 3:15p [facility] 94821 M25.372 Brooke Echavarria Office [facility] [address]67 Z20.6 [facility] Jericho Lopez Z79.899 Office Visit 02/16/2016 2:10p [facility] 79088 S93.402D Of Brooke Echavarria Office Visit 09/04/2015 10:10a [facility] 39863 S93.402S Of Brooke Echavarria M25.572 Office Visit 08/07/2015 1:00p [facility] Fabian Blanco, 75767 S93.402S Ivan Askew M.D. M76.72 M25.572 Office Visit 06/23/2015 8:45a [facility] [place], 68812 845.00 Ivan Askew M.D. 719.47 Office Visit 05/25/2015 8:30a [facility] [place], 58768 845.00 Sharita.Koby Echavarria 719.45 719.47 Office Visit 01/14/2015 1:15p [facility] Jadyn Chambers 68556 845.00 C.MNeo RPA-C 719.45 Plan of Care Future Appointment(s):08/07/2018 11:00 am - Roc Barry MD at [facility] C.MAmira.08/24/2018 10:15 am - Rody Benz M.D. at [facility]
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
[2018-07-27] MEDS ORDERED: Acetaminophen TAB* 325 MG PO ONE (14:13)
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
[2018-07-27 15:08] VITALS: BP 135/92
== END 2018-07-27 15:07 | disposition home or self-care (01) ==
LOC: ED 12:33
DX: S16.1XXA Strain of muscle, fascia and tendon at neck level, initial encounter (principal); V43.52XA Car driver injured in collision with other type car in traffic accident, initial encounter; Y92.9 Unspecified place or not applicable; R51 Headache
CPT/HCPCS: 70450; 72125; 96361; 96374; 99282; 99283; A9270-GY

== ENCOUNTER 2018-10-06 15:12 | Emergency (ER) | payer BC ==
[2018-10-06] MEDS ORDERED: NS 0.9% 1000 ML* 1,000 ML IV ONE (15:25)
[2018-10-06 15:44] LABS: ABS Basophils 0 10^3/ul (0-0.2); ABS Eosinophils 0.1 10^3/ul (0-0.6); ABS Lymphocytes 2.2 10^3/ul (1.0-4.8); ABS Monocytes 0.3 10^3/ul (0-0.8); ABS Neutrophils 2.1 10^3/ul (1.5-7.7); ABS Nucleated RBC 0 10^3/ul; Hematocrit 39 % (35-47); Hemoglobin 13.4 g/dl (12.0-16.0); Lymphocyte % 45.6 %; Mean Corpuscular HGB Conc 35 g/dl (31-36); Mean Corpuscular Hemoglobin 32 pg (27-31); Mean Corpuscular Volume 91 fL (80-97); Nucleated Red Blood Cells % 0.1; Platelet Count 183 10^3/ul (150-450); Red Blood Count 4.25 10^6/ul (4.00-5.40); Red Cell Distribution Width 13 % (10.5-15); White Blood Count 4.8 10^3/ul (3.5-10.8)
[2018-10-06 15:49] LABS: INR 0.92 (0.77-1.02)
[2018-10-06] MEDS ORDERED: DiMENhydriNATE IV* 50 MG/ML VIAL IV PUSH ONE (15:50)
[2018-10-06 16:00] LABS: EGFR Non-African American 59.2 (>60)
--- NOTE | 2018-10-06 16:06 | ED ---
Dizziness - HPI Summary HPI Summary: This patient is a 58 year old female presenting to [facility] with a chief complaint of dizziness since 1130 today. Patient states that multiple times throughout the day, she found herself stopping whatever she was doing and grabbing the nearest wall or railing to keep from falling down. She also tried sitting down and putting her heads between her knees to no relief. Patient denies any over pain. Symptoms aggravated by nothing. Symptoms alleviated by nothing. Patient additionally reports room spinning. Patient denies chest pain, fever, vomiting, diarrhea. - History Of Current Complaint Chief Complaint: EDDizziness Stated Complaint: DIZZINESS/LIGHTHEADED Time Seen by Provider: 10/06/18 15:43 Hx Obtained From: Patient Onset/Duration: Still Present Timing: Constant Severity Currently: Mild Character: Room Spinning, Lightheaded, Weak, Dizzy Aggravating Factor(s): Nothing Alleviating Factor(s): Nothing Associated Signs And Symptoms: Positive: Negative - chest pain, fever, vomiting , diarrhea. - Allergies/Home Medications Allergies/Adverse Reactions: Allergies Allergy/AdvReac Type Severity Reaction Status Date / Time morphine Allergy Severe Anaphylatic Verified 07/27/18 12:45 Shock Penicillins Allergy Severe Anaphylatic Verified 07/27/18 12:45 Shock Sulfa (Sulfonamide Allergy Severe Headache Verified 07/27/18 12:45 Antibiotics) albuterol Allergy Headache Verified 07/27/18 12:45 codeine Allergy Vomiting Verified 07/27/18 12:45 levofloxacin [From Levaquin] Allergy See Comment Verified 07/27/18 12:45 nitrofurantoin Allergy Dizziness Verified 07/27/18 12:45 [From Macrobid] sulfate Allergy Severe Anaphylatic Uncoded 07/27/18 12:45 Shock sulfites Allergy Severe Hives Uncoded 07/27/18 12:45 PMH/Surg Hx/FS Hx/Imm Hx Previously Healthy: No Endocrine/Hematology History: Reports: Hx Anemia - age 6 Denies: Hx Diabetes, Hx Thyroid Disease Cardiovascular History: Reports: Hx Hypertension - ON MEDS-states well controlled Denies: Hx Pacemaker/ICD, Other Cardiovascular Problems/Disorders Respiratory History: Reports: Other Respiratory Problems/Disorders - History of pneumonia 2014 Denies: Hx Asthma, Hx Chronic Obstructive Pulmonary Disease (COPD) GI History: Reports: Other GI Disorders - Appendicitis-Appendectomy, Cholecystectomy Denies: Hx Ulcer History: Reports: Hx Kidney Infection - Pyelonephritis x3, last episode 2015 , Hx Kidney Stones - 2015, Other Problems/Disorders - History of cystitis multiple times Denies: Hx Dialysis, Hx Renal Disease Musculoskeletal History: Reports: Hx Arthritis, Other Musculoskeletal History - 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 [address], Left ankle fracture repair Sensory History: Reports: Hx Contacts or Glasses - Glasses Denies: Hx Hearing Aid Opthamlomology History: Reports: Hx Contacts or Glasses - Glasses Neurological History: Reports: Hx Headaches - 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 Cholecystectomy 2011 [place]. Hernia repair 2007 [place]. C-sections 1987 & 1989, Tubal ligation 1989. Laparoscopy for adhesions 2010. Hysterectomy Right Oophorectomy. Left oophorectomy and large tumor removed- [place]. [place] [place] Anesthesia Reactions: Yes - Had some urinary retention after cholecystectomy - Immunization History Date of Tetanus Vaccine: utd Date of Influenza Vaccine: 2015 Infectious Disease History: No Infectious Disease History: Denies: Hx Clostridium Difficile, Hx Hepatitis, Hx Human Immunodeficiency Virus (HIV), Hx of Known/Suspected MRSA, Hx Shingles, Hx Tuberculosis, Hx Known/ Suspected VRE, Hx Known/Suspected VRSA, History Other Infectious Disease, Traveled Outside the in Last 30 Days - Family History Known Family History: Positive: Hypertension, Other - pos: breast CA: grandmother; father allergic to novacaine - Social History Alcohol Use: None Hx Substance Use: No Substance Use Type: Reports: None Hx Tobacco Use: No Smoking Status (MU): Never Smoked Tobacco Have You Smoked in the Last Year: No Review of Systems Negative: Fever Negative: Chest Pain Negative: Vomiting, Diarrhea Neurological: Other - Dizziness, Room spinning Positive: Weakness All Other Systems Reviewed And Are Negative: Yes Physical Exam - Summary Physical Exam Summary: Appearance: Well appearing, no pain distress Skin: warm, dry, reflects adequate perfusion Head/face: normal Eyes: EOMI, AZEB, no nystagmus ENT: mucous membranes moist, mild injection of the left TM Neck: supple, non-tender Respiratory: CTA, breath sounds present Cardiovascular: RRR, pulses symmetrical Abdomen: non-tender, soft Bowel Sounds: present Musculoskeletal: normal, strength/ROM intact Neuro: sensory motor intact, A&Ox3, positive hallpike to the right, epely maneuvers completed. Triage Information Reviewed: Yes Vital Signs On Initial Exam: Initial Vitals Temp Pulse Resp BP Pulse Ox 96.8 F 63 16 127/92 100 10/06/18 15:13 10/06/18 15:13 10/06/18 15:13 10/06/18 15:13 10/06/18 15:13 Vital Signs Reviewed: Yes Diagnostics - Vital Signs Vital Signs Temp Pulse Resp BP Pulse Ox 10/06/18 15:13 96.8 F 63 16 127/92 100 - Laboratory Lab Results: Lab Results 10/06/18 10/06/18 10/06/18 Range/Units 15:36 15:36 15:36 WBC 4.8 (3.5-10.8) 10^3/ul RBC 4.25 (4.00-5.40) 10^6/ul Hgb 13.4 (12.0-16.0) g/dl Hct 39 (35-47) % MCV 91 (80-97) fL MCH 32 H (27-31) pg MCHC 35 (31-36) g/dl RDW 13 (10.5-15) % Plt Count 183 (150-450) 10^3/ul MPV 9.0 (7.4-10.4) fL Neut % (Auto) 43.7 % Lymph % (Auto) 45.6 % [place] % (Auto) 6.9 % Eos % (Auto) 3.0 % Baso % (Auto) 0.8 % Absolute Neuts (auto) 2.1 (1.5-7.7) 10^3/ul Absolute Lymphs (auto) 2.2 (1.0-4.8) 10^3/ul Absolute Monos (auto) 0.3 (0-0.8) 10^3/ul Absolute Eos (auto) 0.1 (0-0.6) 10^3/ul Absolute Basos (auto) 0 (0-0.2) 10^3/ul Absolute Nucleated RBC 0 10^3/ul Nucleated RBC % 0.1 INR (Anticoag Therapy) 0.92 (0.77-1.02) Sodium 137 (135-145) mmol/L Potassium 4.1 (3.5-5.0) mmol/L Chloride 104 (101-111) mmol/L Carbon Dioxide 27 (22-32) mmol/L Anion Gap 6 (2-11) mmol/L BUN 15 (6-24) mg/dL Creatinine 0.97 H (0.51-0.95) mg/dL Est GFR ( Amer) 71.6 (>60) Est GFR (Non-Af Amer) 59.2 (>60) BUN/Creatinine Ratio 15.5 (8-20) Glucose 162 H (70-100) mg/dL Lactic Acid (0.5-2.0) mmol/L Calcium 9.2 (8.6-10.3) mg/dL Magnesium 2.1 (1.9-2.7) mg/dL Total Bilirubin 0.30 (0.2-1.0) mg/dL AST 17 (13-39) U/L ALT 14 (7-52) U/L Alkaline Phosphatase 67 (34-104) U/L Troponin I 0.00 (<0.04) ng/mL Total Protein 7.1 (6.4-8.9) g/dL Albumin 3.8 (3.2-5.2) g/dL Globulin 3.3 (2-4) g/dL Albumin/Globulin Ratio 1.2 (1-3) TSH Pending Serum Alcohol Pending 10/06/18 Range/Units 15:36 WBC (3.5-10.8) 10^3/ul RBC (4.00-5.40) 10^6/ul Hgb (12.0-16.0) g/dl Hct (35-47) % MCV (80-97) fL MCH (27-31) pg MCHC (31-36) g/dl RDW (10.5-15) % Plt Count (150-450) 10^3/ul MPV (7.4-10.4) fL Neut % (Auto) % Lymph % (Auto) % [place] % (Auto) % Eos % (Auto) % Baso % (Auto) % Absolute Neuts (auto) (1.5-7.7) 10^3/ul Absolute Lymphs (auto) (1.0-4.8) 10^3/ul Absolute Monos (auto) (0-0.8) 10^3/ul Absolute Eos (auto) (0-0.6) 10^3/ul Absolute Basos (auto) (0-0.2) 10^3/ul Absolute Nucleated RBC 10^3/ul Nucleated RBC % INR (Anticoag Therapy) (0.77-1.02) Sodium (135-145) mmol/L Potassium (3.5-5.0) mmol/L Chloride (101-111) mmol/L Carbon Dioxide (22-32) mmol/L Anion Gap (2-11) mmol/L BUN (6-24) mg/dL Creatinine (0.51-0.95) mg/dL Est GFR ( Amer) (>60) Est GFR (Non-Af Amer) (>60) BUN/Creatinine Ratio (8-20) Glucose (70-100) mg/dL Lactic Acid 2.2 H* (0.5-2.0) mmol/L Calcium (8.6-10.3) mg/dL Magnesium (1.9-2.7) mg/dL Total Bilirubin (0.2-1.0) mg/dL AST (13-39) U/L ALT (7-52) U/L Alkaline Phosphatase (34-104) U/L Troponin I (<0.04) ng/mL Total Protein (6.4-8.9) g/dL Albumin (3.2-5.2) g/dL Globulin (2-4) g/dL Albumin/Globulin Ratio (1-3) TSH Serum Alcohol Result Diagrams: 10/06/18 15:36 10/06/18 15:36 Lab Statement: Any lab studies that have been ordered have been reviewed, and results considered in the medical decision making process. - EKG 1548 Cardiac Rate: NL EKG Rhythm: Sinus Rhythm - 65 BPM Summary of EKG Findings: An EKG, taken 1547, reveals NSR (65 BPM), Normal axis. Normal interval. Normal ST. Dizzy Course/Dx - Course Course Of Treatment: Nurse's notes reviewed. Patient with abrupt onset of peripheral vertigo-type symptoms without any other neurologic findings. Positive Hallpike to the right. Patient taught Greta maneuvers here. Her symptoms were gone with hydration and IV Dramamine. Follow-up with primary care physician. Assessment/Plan: Patient will be discharged with a dx of peripheral vertigo. Patient is advised to follow up with PCP in 3 days. The patient is agreeable with this plan. - Diagnoses Differential Diagnosis/HQI/PQRI: Benign Paroxysmal Positional Vertigo, Labyrinthitis, Medication Reaction, Metabolic Abnormality, Transient Ischemic Attack Provider Diagnoses: Peripheral vertigo involving right ear Discharge - Sign-Out/Discharge Documenting (check all that apply): Patient Departure - Discharge Plan Condition: Improved Disposition: HOME Prescriptions: Meclizine HCl [Motion Sickness II] 25 - 50 mg PO TID PRN #30 tablet PRN Reason: Vertigo Patient Education Materials: Vertigo (ED) Referrals: Napoleon Gregory MD [Primary Care Provider] - Additional Instructions: Call your doctor first thing Monday to schedule prompt follow-up. Be careful driving if you're having symptoms he should not drive. Drink plenty of fluids. Return with headache, severe vertigo, vomiting, numbness/weakness or difficulty with speech, worse or other concerns. Eply maneuvers as shown to be done at home if you experience vertigo. - Billing Disposition and Condition Condition: IMPROVED Disposition: Home - Attestation Statements Document Initiated by Emilia: Yes Documenting Scribe: Ross Mcdanile Provider For Whom Emilia is Documenting (Include Credential): Atul Carrera MD Scribe Attestation: Ross Marshall scribed for Atul Carrera MD on 10/06/18 at 1729. Scribe Documentation Reviewed: Yes Provider Attestation: The documentation as recorded by the Ross skelton accurately reflects the service I personally performed and the decisions made by me, Atul Carrera MD Status of Emilia Document: Viewed
[2018-10-06 16:31] VITALS: BP 144/95
== END 2018-10-06 16:59 | disposition home or self-care (01) ==
LOC: ED 15:12
DX: H81.391 Other peripheral vertigo, right ear (principal); I10 Essential (primary) hypertension; Z88.1 Allergy status to other antibiotic agents; Z88.5 Allergy status to narcotic agent; Z88.0 Allergy status to penicillin; Z88.2 Allergy status to sulfonamides; Z88.8 Allergy status to other drugs, medicaments and biological substances
CPT/HCPCS: 36415; 80053; 80320; 83605; 83735; 84443; 84484; 85025; 85610; 93005; 96374; 99283; G0480; J1240